=== PATIENT | male | born 1950 | race Caucasian/White ===

== ENCOUNTER 2016-12-11 00:36 | Observation (INO) | payer MEDICARE ==
[2016-12-11 02:40] LABS: #Eosinphils 0.4 thou/uL (0.0-0.7); #Lymphocytes 1.4 thou/uL (1.20-3.40); #Monocytes 0.5 thou/uL (0.11-0.59); #Neutrophils 3.6 thou/uL (1.40-6.50); %Eosinophils 6.4 % (0.0-10.0); %Lymphocytes 23.7 % (21.0-51.0); %Monocytes 7.9 % (0.0-10.0); Hematocrit 39.3 % (42.0-52.0); Mean Platelet Volume 7.1 fL (7.4-10.4); Red Blood Cell (RBC) Count 4.33 mill/uL (4.70-6.10); White Blood Cell (WBC) Count 5.9 thou/uL (4.8-10.8)
[2016-12-11 03:00] LABS: ALT (SGPT) 19 U/L (8-55); AST (SGOT) 21 U/L (5-34); Alkaline Phosphatase 76 U/L (40-150); Anion Gap 13 mmol/L (10-20); BUN (Urea Nitrogen) 36 mg/dL (8.4-25.7); Bilirubin, Total 0.4 mg/dL (0.2-1.2); CK (CPK) 107 U/L (30-200); Calc. Creatinine Clearance 0 mL/min (70-130); Calcium 9.5 mg/dL (7.8-10.44); Carbon Dioxide 23 mmol/L (23-31); Chloride 108 mmol/L (98-107); Estimated GFR-MDRD 43; Globulin 3.4 g/dL (2.4-3.5); Protein, Total 7.2 g/dL (5.8-8.1)
[2016-12-11 03:05] LABS: Troponin I 0.202 ng/mL (< 0.028)
[2016-12-11 06:14] LABS: Troponin I 0.678 ng/mL (< 0.028)
[2016-12-11] MEDS ORDERED: Acetaminophen 325 MG TAB PO PRN ×2 (06:31→08:35)
[2016-12-11] MEDS ORDERED: Ondansetron ODT 4 MG TAB SL PRN (06:31)
[2016-12-11] MEDS ORDERED: Ondansetron HCl/PF 4 MG/2 ML Vial IVP PRN ×2 (06:31→08:35)
[2016-12-11 08:03] VITALS: BMI 31.0
[2016-12-11] MEDS ORDERED: Bisacodyl 5 MG TAB PO PRN (08:35)
[2016-12-11] MEDS ORDERED: Ondansetron ODT 4 MG TAB PO PRN (08:35)
[2016-12-11] MEDS ORDERED: Nitroglycerin 0.4 MG TAB (25 Tab Bottle) PO PRN (08:35)
[2016-12-11] MEDS ORDERED: Aspirin 325 MG TAB PO SCH (09:00)
[2016-12-11] MEDS ORDERED: Docusate 100 MG CAP PO SCH (09:00)
[2016-12-11] MEDS ORDERED: Famotidine 20 MG TAB PO SCH (09:00)
[2016-12-11] MEDS: Enoxaparin Sodium 30 MG/0.3 ML SYRINGE SC SCH ×2 (09:04→09:07)
[2016-12-11 09:07] LABS: Troponin I 0.811 ng/mL (< 0.028)
--- NOTE | 2016-12-11 09:12 | HP ---
PRIMARY CARE PHYSICIAN: Lanny Gross GRANITE POLISHER: Dr. Kristopher Johnson CHIEF COMPLAINT: Hypertension and upper extremity heaviness. HISTORY OF PRESENT ILLNESS: This is a 66-year-old white male with a known history of significant co ronary artery disease and peripheral vascular disease. He had a CABG in February of this year and en a few months ago he also had an open AAA repair. The patient has been feeling a little bit fatig ued recently, been under stress and then yesterday evening he had to grief counsellor his daughter who was marcus ving suicidal ideation. This put him under a lot of stress. He felt heaviness in bilateral upper e xtremities and in his throat. No chest pain. The patient checked his blood pressure, it was very h igh, he was unable to give a specific number so he went into the emergency room. In the ER, his blo od pressure was in the 160s over 90s. This came down with medication in the emergency room and his heaviness symptoms improved; however, cardiac marker set came back with indeterminate troponins, so he was put observation in the hospital. He has felt better in the hospital. Second cardiac marker set went up from 0.2 initially to 0.6 on the troponin and so we are getting a Cardiology consult on him. PAST MEDICAL HISTORY: 1. Hypertension. 2. Coronary artery disease. 3. Peripheral vascular disease. 4. Glucose intolerance. 5. Dyslipidemia. 6. Chronic renal insufficiency ever since his CABG. PAST SURGICAL HISTORY: 1. Five-vessel CABG in 2017. 2. Endovascular AAA repair converted to open repair in 2017. FAMILY HISTORY: Positive for liver and colon malignancy in his mother. SOCIAL HISTORY: The patient drinks half a beer per day. No illicit drug use. He previously smoked 1 pack of cigars a day, but stopped in February of this year after his CABG. ALLERGIES: The patient is allergic to PENICILLIN. CURRENT MEDICATIONS: The patient does not have his current medication list with him currently. He already gave it the nurse when his was here earlier and I am waiting for that to be put in the computer. REVIEW OF SYSTEMS: CONSTITUTIONAL: No fevers, no chills. The patient has had some mild weight gain over the last year with decreased activity level. EYES: No double vision or blurred vision. He does have a cataract in his right eye which seriously impairs the vision in that eye. ENT: No congestion, drainage or sore throat. The patient had a nosebleed last night as well which made him concerned about elevation of his blood pressure. CARDIOVASCULAR: No chest pain, no palpitations, no racing heart. PULMONARY: No coughing, wheezing or shortness of breath. GASTROINTESTINAL: No abdominal pain, no nausea, vomiting, no diarrhea or constipation. GENITOURINARY: No dysuria or hematuria. MUSCULOSKELETAL: No muscle aches or joint pains. SKIN: No rashes or other lesions noted. NEUROLOGIC: No headaches. He did have the heaviness and weakness in bilateral upper extremities wh ich has now resolved. No numbness or tingling. PSYCHIATRIC: The patient has chronic depression, he has had it for his whole life, no specific wors ening recently. Recently he was under a lot of stress last night though when talking to his duke r. PHYSICAL EXAMINATION: VITAL SIGNS: Blood pressure 178/97 earlier this morning, now down to 132/82 after rest in the hospi wander, temperature 98.5, pulse 75, respirations 16, O2 sat 95% on room air. GENERAL: This is a well-developed, obese white male in no apparent distress, mood and affect approp riate, alert and oriented x3. EYES: Pupils equal, round, and reactive to light. ENT: Oropharynx clear without lesions, erythema or exudate. NECK: Supple, no lymphadenopathy, no thyroid nodules or enlargement, no JVD. HEART: Regular rate and rhythm, no murmurs, rubs or gallops. LUNGS: Clear to auscultation bilaterally, no wheezes, crackles or rhonchi. ABDOMEN: Soft, nontender to palpation, normoactive bowel sounds, no hepatosplenomegaly or other mas ses. EXTREMITIES: No clubbing or cyanosis. He does have trace lower extremity edema in bilateral feet. His peripheral dorsalis pedis pulses are weak bilaterally, though palpable. NEUROLOGIC: Cranial nerves intact and equal bilaterally. No facial droop. Deep tendon reflexes 2+ in all extremities. He has intact strength in all extremities. SKIN: No rashes or other lesions noted. PSYCHIATRIC: Alert and oriented x3, normal mood and affect. LABORATORY DATA: CBC is notable for hemoglobin of 12.6, hematocrit 39.3, the remainder is normal. Complete metabolic panel notable for a chloride of 108, BUN is 36, creatinine 1.63, which is about b aseline for him since his CABG, a glucose of 130 and magnesium of 2.7. The remainder of the CMP was normal. His cardiac marker set showed a CK-MB of 4.9 and initial troponin of 0.202. Repeat tropon in is 0.678. The third troponin is still pending. Chest x-ray: I did review the films done in the emergency room, he has some persistent scarring on his left lung base of his lung which is consistent with previous x-rays. No other infiltrates, no a cute cardiopulmonary processes visualized. EKG: I did review the EKG done in the emergency room which shows normal sinus rhythm with a right b undle branch block and a bifascicular block. No significant arrhythmias. No significant ST changes or evidence of ischemia. This is consistent with his previous EKGs done in the last year. ASSESSMENT AND PLAN: 1. Non-ST elevation myocardial infarction likely secondary to troponin leak from the patient's hype rtensive urgency and stress reaction last night. He has no active symptoms currently and his vital signs have normalized. We will consult Dr. Johnson, Cardiology, will put patient on n.p.o. right now i n case he wants to do a procedure, consider Lovenox anticoagulation, though with the patient's recen t nosebleed and renal insufficiency we will await Cardiology recommendations on that. 2. Hypertensive urgency. We will resume patient's home blood pressure medications and monitor clos michelle. 3. Chronic renal insufficiency. The patient is about baseline currently. We will avoid nephrotoxi c agents and watch closely. 4. Gastrointestinal prophylaxis. We will put patient on Pepcid twice a day. 5. Deep venous thrombosis prophylaxis. We will put the patient on sequential compression devices a nd SUMMER while in bed. CODE STATUS: Patient is a full code.
--- NOTE | 2016-12-11 09:13 | RAD ---
PORTABLE AP CHEST: Date: 12/11/16 HISTORY: Chest pain. COMPARISON: 02/19/16. FINDINGS: Postsurgical changes related to median sternotomy are again noted. Cardiac silhouette is magnified b y projection, but stable in size. Pulmonary vasculature is within normal limits. A few linear densit ies are seen in the left mid lung zone which could be related to atelectasis or scarring. There is p ersistent blunting of the left lateral costophrenic angle which may be related to left pleural effus ion or pleural thickening. Right lung is clear aside from the minimal scarring versus atelectasis. N o other interval change. IMPRESSION: 1. Tiny left pleural effusion versus pleural thickening. 2. Scattered linear areas of scarring versus atelectasis in the mid lung zones bilaterally. POS: [facility]
[2016-12-11] MEDS ORDERED: Carvedilol 6.25 MG TAB PO SCH ×2 (12:45→21:00)
[2016-12-11] MEDS ORDERED: Tamsulosin HCl 0.4 MG CAP PO SCH (12:45)
[2016-12-11] MEDS ORDERED: Clopidogrel Bisulfate 75 MG TAB PO SCH (12:45)
[2016-12-11] MEDS ORDERED: Furosemide 20 MG TAB PO SCH (12:45)
--- NOTE | 2016-12-11 14:50 | CON ---
DATE OF CONSULTATION: 12/11/2016 REFERRING PHYSICIAN: Dr. Christine. REASON FOR CONSULTATION: Chest pain. HISTORY OF PRESENT ILLNESS: Mr. Gordon is a well known 66-year-old gentleman with coronary artery di sease and peripheral vascular disease with recent aortic aneurysm repair and CABG. He presents with chest pain that came on with marked elevation of his blood pressure and has resolved with improved control. He has had some stressful social issues recently at home with a daughter who has recently had some major depressive disorder with suicidal ideation. He took his blood pressure when the onse t of his symptoms began. States his systolic blood pressure was in the 200 mmHg of range. This was trending down upon arrival in the emergency department and has normalized now with resumption of me dical therapy here in the hospital. He had indeterminate troponin elevation that is currently trend ing downward after elevation of his troponin mildly to positive range. He has no further symptoms a nd otherwise feels well and wants to go home. PAST MEDICAL HISTORY: 1. Coronary artery disease with recent CABG in 02/2016. 2. Peripheral vascular disease with recent abdominal aortic aneurysm repair. 3. Hypertension. 4. Type 2 diabetes mellitus. 5. Chronic kidney disease stage 3. 6. Dyslipidemia. PAST SURGICAL HISTORY: 1. CABG x5 in 2017. 2. Endovascular aortic aneurysm repair converted to open repair recently this year. ALLERGIES: PENICILLIN. SOCIAL HISTORY: He drinks half a beer. He denies illicit drug use. He was a smoker, but quit afte r his CABG. FAMILY HISTORY: Negative with respect to premature atherosclerosis. CURRENT MEDICATIONS: At home; 1. Aspirin 81 mg daily. 2. Plavix 75 mg daily. 3. Lipitor 40 mg daily. 4. Carvedilol 6.25 mg b.i.d. 5. Multivitamin daily. 6. Protonix 40 mg daily. 7. Flomax 0.4 mg daily. REVIEW OF SYSTEMS: As per history of present illness. Remainder of 12 system review is negative. PHYSICAL EXAMINATION: VITAL SIGNS: Blood pressure 132/82, pulse 75 and regular, respiratory rate 16 and nonlabored, tempe rature 98.5, and oxygen saturation 95% on room air. GENERAL: This is a well-developed, well-nourished 66-year-old gentleman in no acute distr ess. He is alert and oriented x4. Answers questions appropriately. HEENT: Head is atraumatic, normocephalic. Pupils are equally round and reactive. Sclerae and conj unctivae are clear. There are no oral lesions. NECK: Supple. No JVD, thyromegaly, or carotid bruits. CHEST: Symmetrical inspiration and expiration. HEART: Regular in rate and rhythm. No murmur, S3, or S4. PMI is nondisplaced. Not enlarged. LUNGS: Clear to auscultation in all gurrola. No adventitious sounds appreciated. ABDOMEN: Soft, nontender, nondistended, without mass or organomegaly. Bowel sounds are present in all 4 quadrants. There is no flank bruits auscultated. EXTREMITIES: 2+ pulses noted bilaterally. Upper and lower extremity strength 5/5 bilaterally. The re is no clubbing, cyanosis or edema. NEUROLOGIC: Grossly intact with no focal motor deficits appreciated. DATABASE: EKG reveals sinus rhythm, nonspecific T changes. LABORATORY DATA: CBC reveals white count of 5, hemoglobin and hematocrit of 12 and 39, platelet cou nt 186,000. Differential white blood cells normal. Red cell indices normocytic. Chemistries: Michelle ctrolytes are normal. BUN and creatinine of 36 and 1.6. GFR is estimated at 43. Glucose 130, magn esium 2.7, CK and CK-MB measurements are normal with troponin, initially indeterminate peaking at 0. 811. ASSESSMENT: 1. Hypertensive urgency. 2. Isolated troponin elevation secondary to #1. 3. Coronary artery disease with history of coronary artery bypass graft, stable. 4. Peripheral vascular disease, status post abdominal aortic aneurysm repair, stable. 5. Chronic kidney disease stage 3. 6. Dyslipidemia, on therapy. 7. Chronic obstructive pulmonary disease. RECOMMENDATIONS: From a cardiac standpoint, he is stable. His symptoms have resolved with normaliz ation of his blood pressure. I would recommend resumption of his routine medications, which do have if blood pressure pretty well controlled at home. He is working on getting his daughter's situatio n stabilized with rn medical surgical to prevent overall deterioration of his home health. I have ordered an echo to assess his LV function compared to his most recent office study and if there are no obvious changes or deterioration, we will clear him for discharge home with follow up in the out patient setting within the next 4-6 weeks. I appreciate the opportunity to participate.
[2016-12-11 15:40] VITALS: BP 102/57; TEMP 98.6
[2016-12-11] MEDS ORDERED: Atorvastatin Calcium 40 MG TAB PO SCH (21:00)
--- NOTE | 2016-12-12 06:11 | DIS ---
PRIMARY CARE PHYSICIAN: Lanny Howard [facility] PRIMARY STONE CHIMNEY [place]ON: Dr. Johnson. DIAGNOSES ON ADMISSION: 1. Non-ST elevation myocardial infarction. 2. Hypertensive urgency. 3. Chronic renal insufficiency. 4. Coronary artery disease. 5. Dyslipidemia. 6. Peripheral vascular disease. DIAGNOSES ON DISCHARGE: 1. Non-ST elevation myocardial infarction. 2. Hypertensive urgency has resolved. 3. Chronic renal insufficiency. 4. Coronary artery disease. 5. Dyslipidemia. 6. Peripheral vascular disease. CONSULTATIONS: Cardiology, Dr. Johnson. PROCEDURES: 1. Echocardiogram showing a left ventricular systolic ejection fraction of 45-50% and EA flow rever aminah suggestive of diastolic dysfunction. This is unchanged from previous echocardiogram. PERTINENT LABORATORY: Troponin went up to 0.8 during the admission, creatinine was 1.63. SUMMARY OF HOSPITAL COURSE: This is a 66-year-old white male with known coronary artery disease wit h a CABG earlier in the year, he was having a discussion with his teenage daughter and trying to fol low up with her when she went through some episodes of suicidal ideation. This put him under a lot of stress. He started feeling heaviness in bilateral upper extremities and around his throat. He n oted his blood pressure was high, so he came to the Emergency Room. There, his blood pressure was e levated. He was given medication to bring him down. His initial troponin was indeterminate 0.2, so he was put in the hospital, his troponins increased in the next [address] Johnson was consul wade. Patient did not have any symptoms in the hospital. His heaviness resolved, and he never had a ny chest pain, no shortness of breath. The troponin elevation was thought to be secondary to stress reaction and his severe hypertension. His blood pressure was controlled in the hospital with resum ption of his home medications and he was doing well later in the day and was stable for discharge. DISCHARGE MANAGEMENT: Discharged home. FOLLOWUP: Follow up with Dr. Johnson in 2-4 weeks and with Lanny Howard in the next month. ACTIVITY: As tolerated. DIET: Healthy heart and low sodium diet. MEDICATIONS: The patient is to resume his home medications. 1. Coenzyme Q10 200 mg at night. 2. Flomax 0.4 mg daily. 3. Mylicon drops as needed. 4. Potassium chloride 10 mEq daily. 5. MiraLax daily as needed. 6. Phenol, Chloraseptic spray as needed. 7. Protonix 40 mg daily. 8. Multivitamin daily. 9. Magnesium hydroxide as needed. 10. DuoNeb as needed. 11. Plavix 75 mg daily. 12. Coreg 6.25 mg twice a day. 13. Dulcolax as needed. 14. Atorvastatin 40 mg at night. 15. Aspirin 81 mg daily. 16. Acetaminophen as needed.
[2016-12-12] MEDS ORDERED: Clopidogrel Bisulfate 75 MG TAB PO SCH (09:00)
[2016-12-12] MEDS ORDERED: Tamsulosin HCl 0.4 MG CAP PO SCH (09:00)
[2016-12-12] MEDS ORDERED: Furosemide 20 MG TAB PO SCH (09:00)
--- NOTE | 2016-12-16 13:46 | EKG ---
Test Reason : Blood Pressure : / mmHG Vent. Rate : 084 BPM Atrial Rate : 084 BPM P-R Int : 168 ms QRS Dur : 142 ms QT Int : 430 ms P-R-T Axes : 055 -63 085 degrees QTc Int : 508 ms Normal sinus rhythm Possible Left atrial enlargement Right bundle branch block Left anterior fascicular block Bifascicular block Left ventricular hypertrophy with repolarization abnormality Cannot rule out Septal infarct , age undetermined Abnormal ECG Confirmed by SUSHIL YUAN MD ([id number]), website/blog editor TAYLOR VELASCO ([id number]) on 12/16/2016 1:45:57 PM Referred By: Confirmed By:SUSHIL YUAN MD
== END 2016-12-11 17:29 | disposition home or self-care (01) ==
LOC: ERS 00:36 → 2SE 04:10
PROVIDERS: ADMIT Internal Medicine; ATTEND Internal Medicine
DX: I21.4 Non-ST elevation (NSTEMI) myocardial infarction (principal); E11.22 Type 2 diabetes mellitus with diabetic chronic kidney disease; I16.0 Hypertensive urgency; I12.9 Hypertensive chronic kidney disease with stage 1 through stage 4 chronic kidney disease, or unspecified chronic kidney disease; N18.3 Chronic kidney disease, stage 3 (moderate); I25.10 Atherosclerotic heart disease of native coronary artery without angina pectoris; E78.5 Hyperlipidemia, unspecified; I73.9 Peripheral vascular disease, unspecified; Z79.82 Long term (current) use of aspirin; Z79.899 Other long term (current) drug therapy; Z88.0 Allergy status to penicillin; Z95.1 Presence of aortocoronary bypass graft; Z98.890 Other specified postprocedural states; Z87.891 Personal history of nicotine dependence; Z80.0 Family history of malignant neoplasm of digestive organs
CPT/HCPCS: 71010; 80053; 82550; 82553; 83735; 84484 ×2; 85025; 93005; 93306; 94760; 97139; 99284; G0378; 36415; J1650

== ENCOUNTER 2017-08-28 14:26 | Outpatient (CLI) | payer MEDICARE ==
--- NOTE | 2017-08-28 14:58 | RAD ---
TWO VIEWS OF THE CHEST: COMPARISON: 06/29/16. HISTORY: Hypertension and abdominal aortic aneurysm. FINDINGS: Two views of the chest show an enlarged but stable cardiomediastinal silhouette. The patient is stat us post sternotomy. Increased interstitial lung markings are present. There appears to be a small l eft pleural effusion. There is a mass-like opacity projecting on the lateral radiograph posteriorly. This measures 4.3 cm in size and may represent a small amount of loculated fluid along the posterio r aspect of the thorax. IMPRESSION: Small left pleural effusion with possible loculated fluid posteriorly. POS: [facility]
== END 2017-08-28 14:27 | disposition home or self-care (01) ==
LOC: RAD-FRANK 14:26
PROVIDERS: ATTEND Nurse Practitioner Family
DX: I71.4 Abdominal aortic aneurysm, without rupture (principal); I10 Essential (primary) hypertension; J90 Pleural effusion, not elsewhere classified
CPT/HCPCS: 71046

== ENCOUNTER 2017-09-18 12:35 | Outpatient (CLI) | payer MEDICARE ==
--- NOTE | 2017-09-18 13:29 | RAD ---
TWO VIEWS CHEST: History: Dyspnea. Date: 09-18-17 Comparison: 08-28-17 FINDINGS: PA and lateral images demonstrate sternotomy wires seen. Areas of scar seen in the mid left lung as well as both lung bases. Some areas of pleural thickening seen along the lateral aspect of the left pleural space, again stabl e. No acute intrathoracic abnormalities seen. Again on the lateral view posteriorly there appears to be an area of opacity unchanged since the prev ious exam. IMPRESSION: Stable two views chest. Correlation with chest CT, however, may be of use if clinically indicated. POS: [facility]
== END 2017-09-18 12:36 | disposition home or self-care (01) ==
LOC: RAD 12:35
PROVIDERS: ATTEND Internal Medicine Critical Care Medicine
DX: R06.00 Dyspnea, unspecified (principal)
CPT/HCPCS: 71046

== ENCOUNTER 2017-10-29 13:33 | Outpatient (CLI) | payer MEDICARE ==
--- NOTE | 2017-10-29 15:58 | CT ---
NONCONTRAST CT THORAX: Date: 10/29/17 HISTORY: Abnormal chest x-ray. Pleural effusion. COMPARISON: Noncontrasted CT thorax on 06/09/16. FINDINGS: Vascular calcifications are again seen in the coronary arteries involving the thoracic aorta. There a re postsurgical changes related to CABG. There is an area of consolidation seen in the left lower lobe with generalized volume loss of the lef t lower lobe, but this is likely attributable to an area of rounded atelectasis, but continued follow -up is recommended. There is minimal pleural thickening versus pleural effusion at the left lung base . The pleural effusion noted on the prior exam has improved. In the superior segment of the right lower lobe, there is a noncalcified 9.0 mm pulmonary nodule whic h is certainly more discrete than on the prior exam where this measured 6.0 mm. This is enlarged comp ared to prior exam. There is linear scarring versus atelectasis in the right lower lobe. No additional discrete pulmonary nodule or mass is seen. No enlarged lymph nodes are seen by CT size criteria. There is incomplete visualization of a right renal hypodense lesion noted on prior exam of 2017. IMPRESSION: 1. Area of parenchymal consolidation left lower lobe with generalized volume loss of left lower lobe . Findings are thought to most likely be related to an area of rounded atelectasis. However, follow-u p evaluation in 6 months is recommended. 2. Decrease in left pleural effusion with minimal pleural thickening at the left lung base. 3. Mild interval enlargement of a right lower lobe pulmonary nodule which measures 9.0 mm on the cur rent study and previously measured 6.0 mm. POS: [facility]
== END 2017-10-29 13:34 | disposition home or self-care (01) ==
LOC: CT 13:33
PROVIDERS: ATTEND Internal Medicine Critical Care Medicine
DX: J90 Pleural effusion, not elsewhere classified (principal); J92.9 Pleural plaque without asbestos; J18.1 Lobar pneumonia, unspecified organism; R91.1 Solitary pulmonary nodule
CPT/HCPCS: 71250

== ENCOUNTER 2017-11-07 09:37 | Inpatient (IN) | payer MEDICARE ==
[2017-11-07 10:57] LABS: Hemoglobin 14.2 g/dL (14.0-18.0); Mean Corpuscular HGB CONC 31.4 g/dL (32.0-36.0); Mean Corpuscular Hemoglobin 30.3 pg (27.0-31.0); Mean Corpuscular Volume 96.5 fL (78.0-98.0); Mean Platelet Volume 6.7 fL (7.4-10.4); Platelet Count 203 thou/uL (130-400); RBC Distribution Width 14.4 % (11.5-14.5); Red Blood Cell (RBC) Count 4.67 mill/uL (4.70-6.10); White Blood Cell (WBC) Count 5.3 thou/uL (4.8-10.8)
[2017-11-07 11:14] LABS: Anion Gap 11 mmol/L (10-20); BUN (Urea Nitrogen) 37 mg/dL (8.4-25.7); Calc. Creatinine Clearance 67 mL/min (70-130); Calcium 9.4 mg/dL (7.8-10.44); Carbon Dioxide 23 mmol/L (23-31); Chloride 110 mmol/L (98-107); Estimated GFR-MDRD 38; Glucose 106 mg/dL (80-115); Potassium 4.4 mmol/L (3.5-5.1); Sodium 140 mmol/L (136-145)
[2017-11-07] MEDS ORDERED: Midazolam HCl 2 mg/2 ml Vial ONE (14:07)
[2017-11-07] MEDS ORDERED: Fentanyl 100 MCG/2 ML VIAL ONE ×2 (14:15→18:20)
[2017-11-07] MEDS ORDERED: Protamine Sulfate 50 MG/5 ML VIAL ONE ×2 (14:20→17:09)
[2017-11-07] MEDS ORDERED: Heparin 5,000 UNITS/ML VIAL ONE (14:20)
[2017-11-07] MEDS ORDERED: Phenylephrine HCL 10 MG/ML VIAL ONE (14:46)
[2017-11-07] MEDS ORDERED: Ondansetron HCl/PF 4 MG/2 ML Vial ONE (15:10)
[2017-11-07] MEDS ORDERED: PROPOFOL 200 MG/20 ML VIAL ONE (15:10)
[2017-11-07] MEDS ORDERED: Lidocaine 1% PF 5 ML VIAL ONE (15:10)
[2017-11-07] MEDS ORDERED: PHENYLEPHRINE-NS 100 MCG/ML 10 ML SYRINGE ONE (15:10)
[2017-11-07] MEDS ORDERED: Dexamethasone 20 MG/5 ML VIAL ONE (15:10)
[2017-11-07] MEDS ORDERED: Glycopyrrolate 0.2 MG/ML 5 ML SYRINGE ONE (15:10)
[2017-11-07] MEDS ORDERED: Heparin 10,000 UNITS/ 10 ML VIAL ONE (15:10)
[2017-11-07] MEDS ORDERED: Heparin 10,000 UNITS/1 ML VIAL ONE (16:11)
--- NOTE | 2017-11-07 16:44 | EKG ---
Test Reason : PREOP Blood Pressure : / mmHG Vent. Rate : 072 BPM Atrial Rate : 072 BPM P-R Int : 188 ms QRS Dur : 160 ms QT Int : 448 ms P-R-T Axes : 065 -63 091 degrees QTc Int : 490 ms Normal sinus rhythm Right bundle branch block Left anterior fascicular block Bifascicular block Left ventricular hypertrophy with repolarization abnormality Abnormal ECG When compared with ECG of 11-DEC-2016 00:56, No significant change was found Confirmed by KALEN LUO, SJad ([id number]) on 11/07/2017 4:44:18 PM Referred By: MUNIRA Confirmed By:DR. Hannah HIGUERA MD
[2017-11-07] MEDS ORDERED: Promethazine HCl 25 MG/ML VIAL SLOW IVP PRN (18:14)
[2017-11-07] MEDS ORDERED: Ondansetron HCl/PF 4 MG/2 ML Vial IVP PRN ×2 (18:14→20:10)
[2017-11-07] MEDS ORDERED: Promethazine HCl 25 MG/ML VIAL IM PRN ×2 (18:14→20:10)
[2017-11-07] MEDS ORDERED: HYDROcodone/Acetaminophen 5/325 mg Tablet PO PRN ×2 (20:10)
[2017-11-07] MEDS ORDERED: Acetaminophen 325 MG TAB PO PRN (20:10)
[2017-11-07] MEDS ORDERED: hydrALAZINE 20 MG/ML VIAL SLOW IVP PRN (20:10)
[2017-11-07] MEDS: Sodium Chloride 0.9% 1,000 ML IV SCH (20:23)
[2017-11-07 20:35] VITALS: BMI 32.5
--- NOTE | 2017-11-07 20:38 | OP ---
DATE OF PROCEDURE: 11/07/2017 PROCEDURE PERFORMED: Left carotid endarterectomy. PREOPERATIVE DIAGNOSIS: Left carotid stenosis. POSTOPERATIVE DIAGNOSIS: Left carotid stenosis. SURGEON: Gildardo Chatterjee M.D. ANESTHESIA: General endotracheal anesthesia. INDICATIONS: The patient is a 67-year-old man with extensive vascular history, having undergone prev ious coronary artery bypass grafting and aortic aneurysm repair. He had asymptomatic carotid bruits and ultrasonography suggested modest stenosis on the right side, but a high grade stenosis on the lef t. In light of his mild renal insufficiency, it is opted to proceed with left carotid endarterectomy based on the available studies. FINDINGS: Large tortuous carotid with deeply ulcerated soft plaque at the bulb extending 2-3 cm dist ally into the internal carotid artery. There was brisk ICA backbleeding. Preshunt clamp time was 9 minutes. Shunt time was 29 minutes. Post-shunt clamp time was 4 minutes. NARRATIVE REPORT: After informed consent was obtained, the patient was taken to the operating room a nd placed in supine position on the operating table. After the induction of general anesthesia, gardenia ent's neck was extended and rotated towards the right. His left neck was then prepped and draped in sterile fashion. An oblique incision is made in the skin crease on the left neck using a scalpel and electrocautery. The dissection was carried through subcutaneous tissue, platysma anteromedial to th e sternocleidomastoid muscle and internal jugular vein. The common carotid artery was dissected free from that sheath and the vagus nerve and looped with a vessel loop. Multiple tributaries to the jug ular system crossing the operative field were ligated and divided. The dissection was carried distal ly. The external carotid system was looped in mass with a vessel loop. At the bulb plaque could be appreciated visually through the vessel wall, the internal carotid was quite tortuous and a nest of e xtremely thin walled small veins crossing the field that required ligation and division. The anterio r cervical callus was divided. The dissection was carried beyond the level of the hypoglossal nerve and digastric muscle. After adequate circulation of heparin, the internal carotid, common carotid, a nd external carotid systems were sequentially occluded. A longitudinal arteriotomy was made in the d istal common carotid artery and extended proximally and distally with Garcia scissors. An endarterect bud plane was developed at the bulb. Plaque was transected at the common carotid level and everted f rom the external carotid system. The plaque did not break off very easily in the internal carotid di steveny. There is a deeply ulcerated plaque where the ulcer bed was adherent to the vessel wall deep to the endarterectomy plane. The plaque distal to that was tailored to establish a distal feather an d an intraluminal carotid shunt was inserted first distally in the internal carotid and proximally in the common carotid aspirating side port of the shunt before allowing antegrade flow through it into the internal carotid system. Control of bleeding around the shunt distally was established with David d shunt clamp. The endarterectomy bed was irrigated. A Ray-Derrick sponge, elevator and forceps were us ed to debride the remaining soft plaque from the vessel wall. This was a tedious and time consuming process. The endarterectomy bed finally was adequately debrided and irrigated. The arteriotomy was then sewn from either apex with running 6-0 Prolene suture with about a 0.5 cm of arteriotomy left, s o shunt was clamped and removed with vascular control being reestablished on the origin of the recruiting intern al carotid and on the common carotid with vessel loops. The remaining arteriotomy was found. The ve ssels are forward and backbled to allow for flushing of any air or residual debris out the arteriotom y or into the external carotid system. The suture line was secured and antegrade flow was allowed fi rst into the external carotid and then into the internal carotid. The wound was inspected for gross hemostasis, which appeared to be adequate. The wound was packed off. Because of diffuse oozing from the dissection bed as well as from the suture line, it was opted to at least partially reverse the h eparin. The patient has been given 12,000 units of heparin, initially 50 mg of protamine was initial ly given because of ongoing oozing, it was opted ultimately gave an additional 50 mg. There were no distinct bleeding points on the suture line noted, although along the common carotid, there was a dif fuse area of ooze that was rendered hemostatic by oversewing that area with fine Prolene. After havi ng packed the wound off with Surgicel and Ray-Derrick sponges and done almost 1:1 reversal of the heparin . After about 45 minutes, hemostasis was finally adequate to allow for closure. The platysma was re approximated with a running 3-0 Vicryl and the skin was closed with running 5-0 Vicryl subcuticular s uture and Steri-Strips. The wound was dressed. The patient was awakened in the operating room, take n to the recovery area in good condition.
[2017-11-07] MEDS ORDERED: Multivitamin W/ Minerals 1 TAB PO SCH (21:00)
[2017-11-07] MEDS ORDERED: Atorvastatin Calcium 40 MG TAB PO SCH (21:00)
[2017-11-07] MEDS ORDERED: Ubidecarenone 50 MG CAP PO SCH (21:00)
[2017-11-07] MEDS: Oxybutynin 5 MG TAB PO SCH (21:38)
[2017-11-07] MEDS: Carvedilol 6.25 MG TAB PO SCH (21:38)
[2017-11-07] MEDS: hydrALAZINE 25 MG TAB PO SCH (21:38)
[2017-11-08] MEDS: Sodium Chloride 0.9% 1,000 ML IV SCH ×2 (05:54→12:23)
--- NOTE | 2017-11-08 07:13 | DIS ---
DATE OF ADMISSION: 11/07/2017 DATE OF DISCHARGE: 11/08/2017 PRINCIPAL DIAGNOSIS: Left carotid stenosis. PROCEDURES PERFORMED: Left carotid endarterectomy. HISTORY OF PRESENT ILLNESS AND HOSPITAL COURSE: The patient is a 67-year-old former smoker with diff use vascular disease, asymptomatic carotid bruits prompted carotid ultrasonography, which demonstrate d modest disease on the right and elevated velocities and ratios and spectral broadening on the left consistent with a high grade stenosis. Because of mild renal insufficiency, it was opted to forego f urther imaging studies and after discussing treatment options, he was brought into the hospital for l eft carotid endarterectomy. Intraoperatively, the carotid was noted to be very tortuous and involves with soft plaque that was deeply ulcerated which pose simply some technical problems with adequately endarterectomizing the vessel. He had an uneventful postoperative recovery overnight in the hospita l in the ICU with the exception of urinary retention. Today on postoperative day #1, he had some min imal bruising and swelling associated with the wound consistent with skin edge bleeding. His tongue is midline. His voice is normal. He is breathing and swallowing without difficulty. He is able to move all extremities normally. He can go home today once his voiding issues declare themselves. I w ill plan on seeing him in the office in about 2 weeks' time. He is to resume his home medications, w hich include aspirin and Plavix.
[2017-11-08] MEDS ORDERED: Potassium Chloride 10 MEQ TAB PO SCH (08:00)
[2017-11-08] MEDS ORDERED: Tamsulosin HCl 0.4 MG CAP PO SCH (09:00)
[2017-11-08] MEDS ORDERED: Prevnar 13-Val Conj/PF 0.5 ML SYRINGE IM ONE (09:00)
[2017-11-08] MEDS ORDERED: Furosemide 20 MG TAB PO SCH (09:00)
[2017-11-08] MEDS: Carvedilol 6.25 MG TAB PO SCH (09:10)
[2017-11-08] MEDS: hydrALAZINE 25 MG TAB PO SCH (09:10)
[2017-11-08] MEDS: Oxybutynin 5 MG TAB PO SCH (09:11)
[2017-11-08 09:18] VITALS: BP 112/58
[2017-11-08 12:10] VITALS: TEMP 98.3
== END 2017-11-08 12:50 | disposition home or self-care (01) | DRG 38 ==
LOC: SURG A 09:37 → EDSTATUS 16:07 → CCU 19:55
PROVIDERS: ADMIT Thoracic Surgery (Cardiothoracic Vascular Surgery); ATTEND Thoracic Surgery (Cardiothoracic Vascular Surgery)
PROC: 03CL0ZZ Extirpation of Matter from Left Internal Carotid Artery, Open Approach (ICD-10-PCS; principal; 2017-11-07)
DX: I65.22 Occlusion and stenosis of left carotid artery (principal); I25.110 Atherosclerotic heart disease of native coronary artery with unstable angina pectoris; Z79.02 Long term (current) use of antithrombotics/antiplatelets; Z79.82 Long term (current) use of aspirin; J44.9 Chronic obstructive pulmonary disease, unspecified; I10 Essential (primary) hypertension; Z95.1 Presence of aortocoronary bypass graft; Z88.0 Allergy status to penicillin
CPT/HCPCS: 80048; 85027; 90471; 90670; 93005; 93010; 94640; A4216; G0009; J0360; J1100; J1642; J1644; J2001; J2250; J2270; J2370; J2405; J2704; J2720; J3010; J7620

== ENCOUNTER 2018-06-13 09:52 | Outpatient (CLI) | payer MEDICARE ==
--- NOTE | 2018-06-13 11:00 | CT ---
NONCONTRAST ENHANCED CT CHEST: DATE: 06/13/2018. COMPARISON: Comparison is made to previous exam from 10/29/2018. FINDINGS: Noncontrast enhanced CT of the chest demonstrates previous sternotomy wires seen. Coronary artery ca lcification is seen. Bibasilar areas of lung parenchymal scarring is seen. Previously noted right lower lobe upper aspect lung parenchymal nodular density is no longer definitively visible. This area may have extended and become involved with some area of pleural scarring. No definite evidence of mediastinal, hilar, or axillary lymphadenopathy is seen. The pancreas is atrophied. The gallbladder is unremarkable. IMPRESSION: Multiple areas of lung parenchymal scarring. No definite evidence of lung parenchymal mass is seen. There is abnormal dilatation of the descending thoracic aorta as it passes through the diaphragm. D iameter measures up to 5.1 cm. It is significantly smaller proximal and distal to this area of focal aneurysmal dilatation of the thoracoabdominal junction. The superior inferior length of the area of aneurysmal dilatation measures approximately 9 cm. Previous diameter in this same area on October 29, 2017 exam measured approximately 4.9 cm. POS: [facility]
== END 2018-06-13 09:53 | disposition home or self-care (01) ==
LOC: BICCT 09:52
PROVIDERS: ATTEND Internal Medicine Critical Care Medicine
DX: R91.1 Solitary pulmonary nodule (principal); J98.4 Other disorders of lung; I77.810 Thoracic aortic ectasia; I71.6 Thoracoabdominal aortic aneurysm, without rupture
CPT/HCPCS: 71250

== ENCOUNTER 2018-07-12 12:32 | Outpatient (CLI) | payer MEDICARE ==
--- NOTE | 2018-07-12 14:32 | CT ---
CT ABDOMEN AND PELVIS WITHOUT CONTRAST: Date: 07/12/18 HISTORY: Essential hypertension. FINDINGS: Absence of oral and IV contrast reduces the sensitivity of exam, particularly for evaluation of solid organs and bowel. Atelectatic changes in the left lung base and 5.1 cm aneurysm of the descending th oracic aorta are again seen as on CT chest of 06/13/18. There are vascular calcifications without evidence of aneurysmal dilatation of the abdominal aorta. T here are postop changes of aortofemoral bypass surgery. There is a 2.6 cm aneurysm of the right commo n iliac artery and a 2.4 cm aneurysm of the left common iliac artery. No calcified gallstones are seen. No free air or free fluid is noted in the abdomen or pelvis. There are degenerative changes in the spine. No calculi seen in the kidneys, ureters, or the urinary bladder. Bilateral renal cysts are present. N o hydroureteronephrosis is seen on either side. There is colonic diverticulosis without evidence of d iverticulitis. A small umbilical hernia is seen containing loop of bowel. A normal appearing appendix is present. IMPRESSION: 1. No CT evidence of urinary tract calculi or obstruction. 2. Bilateral renal cysts. 3. Colonic diverticulosis. 4. Small umbilical hernia containing non obstructing bowel loop. 5. 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 6. No evidence of abdominal aortic aneurysm. 7. Bilateral common iliac artery aneurysms. POS: [facility]
== END 2018-07-12 12:33 | disposition home or self-care (01) ==
LOC: BICCT 12:32
PROVIDERS: ATTEND Thoracic Surgery (Cardiothoracic Vascular Surgery)
DX: I10 Essential (primary) hypertension (principal); N28.1 Cyst of kidney, acquired; I71.2 Thoracic aortic aneurysm, without rupture; I72.3 Aneurysm of iliac artery; K57.30 Diverticulosis of large intestine without perforation or abscess without bleeding; K42.9 Umbilical hernia without obstruction or gangrene
CPT/HCPCS: 74176

== ENCOUNTER 2018-08-24 16:45 | Emergency (ER) | payer MEDICARE ==
--- NOTE | 2018-08-24 18:31 | ULT ---
VASCULAR AND NONVASCULAR ULTRASOUND OF THE LEFT ASPECT OF THE NECK: 08/24/18 INDICATION: Neck swelling following left endarterectomy. TECHNIQUE: Johnson scale, color Doppler images were obtained in the region of swelling in the left neck. FINDINGS: There is some mild soft tissue swelling seen near the region of the parotid. There is appropriate ant egrade flow seen within the left common carotid artery. No pseudoaneurysm is evident. IMPRESSION: 1. No evidence of pseudoaneurysm. 2. Soft tissue swelling of the left aspect of the neck which may be postoperative in nature. POS: [facility]
== END 2018-08-24 19:19 | disposition home or self-care (01) ==
LOC: ERS 16:45
DX: R22.1 Localized swelling, mass and lump, neck (principal); I10 Essential (primary) hypertension; I25.10 Atherosclerotic heart disease of native coronary artery without angina pectoris; F32.9 Major depressive disorder, single episode, unspecified; Z87.891 Personal history of nicotine dependence; Z79.82 Long term (current) use of aspirin; Z79.899 Other long term (current) drug therapy
CPT/HCPCS: 76536

== ENCOUNTER 2018-12-24 12:56 | Outpatient (CLI) | payer MEDICARE ==
--- NOTE | 2018-12-24 14:02 | RAD ---
RADIOGRAPH CHEST 2 VIEWS: Date: 12/24/18 Time: 1305 hours HISTORY: 68-year-old male with dyspnea. COMPARISON: 09/18/17. FINDINGS: Ectasia and tortuosity of entire descending thoracic aorta. Aneurysm of lower descending thoracic aor ta (as demonstrated on chest CT of 06/13/18). On the frontal view, there is no interval change. Trans versely oriented pulmonary scar at left lateral mid lung zone. No pleural effusion or pneumothorax. N o pulmonary edema. On the lateral view, chronic blunting of the left posterior costophrenic angle con sistent with pleural thickening, unchanged. On the lateral view, the left posterior pleural based mas s-like opacity at the superior segment at the junction between superior and basilic segment of lower lobe, has become much smaller. A nodular area with streaky radiations pointing anteriorly is now pres ent in that location. There is adjacent focal pleural thickening. Sternotomy wires. IMPRESSION: 1. Interval decrease in size of the left posterior pleural based lower lobe opacity. It currently marcus s spiculated margins suggesting that it is probably pulmonary scar. However, another follow-up chest CT is recommended to compare it with the prior chest CT of 06/13/18. 2. Lower descending thoracic aortic aneurysm. 3. No acute findings. WENDY [] POS: [facility]
== END 2018-12-24 12:57 | disposition home or self-care (01) ==
LOC: RAD 12:56
PROVIDERS: ATTEND Internal Medicine Critical Care Medicine
DX: R06.00 Dyspnea, unspecified (principal); I71.2 Thoracic aortic aneurysm, without rupture; R91.8 Other nonspecific abnormal finding of lung field
CPT/HCPCS: 71046

== ENCOUNTER 2019-01-26 19:30 | Outpatient (CLI) | payer MEDICARE | END 2019-01-26 19:31 | disposition home or self-care (01) | LOC: SLEEPLAB 19:30 | PROVIDERS: ATTEND Internal Medicine Critical Care Medicine | DX: G47.33 Obstructive sleep apnea (adult) (pediatric) (principal); K21.9 Gastro-esophageal reflux disease without esophagitis; R53.83 Other fatigue; R06.83 Snoring; I50.9 Heart failure, unspecified; E66.9 Obesity, unspecified; I10 Essential (primary) hypertension; G47.00 Insomnia, unspecified | CPT/HCPCS: 95811 ==

== ENCOUNTER 2019-07-15 10:38 | Outpatient (CLI) | payer MEDICARE ==
--- NOTE | 2019-07-15 15:20 | CT ---
CT ABDOMEN AND PELVIS PERFORMED WITHOUT CONTRAST ENHANCEMENT: 07/15/19 HISTORY: Follow-up aortic aneurysm. History of aortic aneurysm repair. COMPARISON: A 07/12/18 exam. The lung bases show some chronic linear scarring and pleural based change in the left base, all stabl e. There is dilatation of the descending thoracic aorta just above the level of the aortic hiatus lucero suring 5.1 cm. Similar to the previous exam. The liver, spleen, pancreas, and gallbladder regions appear unremarkable. The right and left adrenal glands are normal in appearance. Hypodensities involving the right kidney appears stable. Smaller hypodensity involving the left kidney is also stable. There is no significant periaortic or mesenteric adenopathy. Colonic diverticulosis is present. An aortobifemoral graft is p resent. The [place] common iliac arteries again show aneurysmal dilatation similar to the previous exa m. The right common iliac artery is 2.7 cm and the left is 2.3 cm. These findings are stable. No pelv ic lymphadenopathy or mass. A small umbilical hernia is noted. IMPRESSION: 1. Stable appearance to the partially visualized descending thoracic aneurysm. 2. Aortobifemoral graft stable appearance to bilateral common iliac artery to [place] right and l eft common iliac artery aneurysms. 3. Colonic diverticulosis. 4. Small umbilical hernia. POS: [facility]
--- NOTE | 2019-07-15 15:35 | CT ---
CT OF THE THORAX WITHOUT IV CONTRAST: 07/15/19 INDICATION: Follow-up aneurysms. COMPARISON: Prior CT of the thorax without contrast dated 06/13/18. Prior CT of the thorax dated 10/29/17. FINDINGS: There is scattered scarring and subsegmental volume loss involving both lungs stable appearing. There is scattered emphysema. There is a new 9 mm pulmonary nodule in the left upper lobe on image 56 of s eries 3. No enlarged lymph nodes evident. Stable postprocedural change of a prior CABG. Stable aneurysmal dilatation of the ascending aorta measuring 5.1 cm. Aneurysmal dilatation of the ao rtic arch measures 3.9 cm and stable appearing. Aneurysmal dilatation of the descending thoracic aorta at the level of the right main pulmonary arter y is 3.3 cm, stable appearing. The dilatation at the level of the diaphragmatic hiatus now measures 5.3 cm where it previously measu red 5.1 cm. There is a small hiatal hernia. There is small bilateral renal cyst. There is diffuse osteopenia. The re are scattered degenerative change. No definite acute osseous abnormality is evident. IMPRESSION: 1. Slight interval enlargement of the distal descending thoracic aortic aneurysm at the level of the hiatus measuring up to 5.3 cm, previously seen measuring 5.1 cm. Aneurysmal dilatation of the as cending aorta, aortic arch and proximal descending thoracic aorta is stable appearing. 2. New 8 mm spiculated pulmonary nodule in the left upper lobe is suspicious for malignancy. Rec ommend consideration for PET scan for additional characterization. 3. Scattered emphysema and subsegmental volume loss. Code T POS: [facility]
== END 2019-07-15 10:39 | disposition home or self-care (01) ==
LOC: BICCT 10:38
PROVIDERS: ATTEND Thoracic Surgery (Cardiothoracic Vascular Surgery)
DX: I71.4 Abdominal aortic aneurysm, without rupture (principal)
CPT/HCPCS: 71250; 74176

== ENCOUNTER 2020-02-19 11:17 | Outpatient (CLI) | payer MEDICARE ==
--- NOTE | 2020-02-19 11:54 | CT ---
CT Abdomen Pelvis WO Con 02/19/2020 11:20 AM HISTORY: Follow-up abdominal aortic aneurysm and abdominal aortic aneurysm repair. COMPARISON: 07/15/2019 and 07/12/2018 Technique: Multiple contiguous axial CT images are obtained through the abdomen and pelvis without IV contrast. Coronal reformats are provided. FINDINGS: This examination is limited for the evaluation of solid organs and vascular structures due to the lac k of intravenous contrast. Lower Chest: There is stable mild pleural and parenchymal scarring noted at each lung base. Liver: Grossly normal non-enhanced CT appearance. Gallbladder: Within normal limits for CT imaging. Pancreas: Fatty replaced but grossly normal nonenhanced CT appearance. Spleen: Grossly normal nonenhanced CT appearance. Adrenals: Grossly normal nonenhanced CT appearance. Kidneys and ureters: There are stable bilateral renal cysts. No renal or ureteral calculi are seen bi laterally, and there is no hydronephrosis. Urinary bladder: Urinary bladder has a normal CT appearance. Reproductive Organs: No pelvic masses. Lymph Nodes: No enlarged lymph nodes. Bowel: Evidence of colonic diverticulosis. Loops of small bowel are normal in caliber. Appendix: The appendix is normal in caliber. Peritoneum: No free fluid, free air, or fluid collection. Retroperitoneum: within normal limits. Vessels: Postoperative changes related to aortobifemoral bypass are again seen again noted is aneurys mal dilatation of the [place] common iliac arteries with right common carotid artery measuring 2.9 cm in diameter and unchanged in size compared to study in 2019. Vascular calcifications are seen in t he abdominal aorta and in the iliac arteries. There is aneurysmal dilatation of the distal thoracic aorta just proximal to the aortic hiatus which measures 5.3 cm in diameter with previously obtained m easurement of 5.1 cm. Abdominal Wall: Tiny fat-containing ventral abdominal wall hernias related to incisional hernias. The re is a area of soft tissue density seen along the right aspect of the umbilicus which could relate to an area of mild scarring. This is a stable finding. Postoperative changes e.g. region are noted. Bones: Degenerative changes are again seen in the spine. IMPRESSION: 1. Aneurysmal dilatation of the imaged portion of the distal thoracic aorta which measures 5.3 cm in diameter. 2. Postoperative changes related to aortobifemoral bypass graft with persistent aneurysmal dilatation of the [place] common iliac arteries. 3. Colonic diverticulosis. 4. Bilateral renal cysts. 6. Mild bibasilar pleural and parenchymal scarring. 7. Colonic diverticulosis.
== END 2020-02-19 11:18 | disposition home or self-care (01) ==
LOC: BICCT 11:17
PROVIDERS: ATTEND Thoracic Surgery (Cardiothoracic Vascular Surgery)
DX: I71.4 Abdominal aortic aneurysm, without rupture (principal); I71.2 Thoracic aortic aneurysm, without rupture; K57.30 Diverticulosis of large intestine without perforation or abscess without bleeding; N28.1 Cyst of kidney, acquired; J98.4 Other disorders of lung; I72.3 Aneurysm of iliac artery; Z98.890 Other specified postprocedural states
CPT/HCPCS: 74176

== ENCOUNTER 2020-06-22 16:15 | Outpatient (CLI) | payer MEDICARE | END 2020-06-22 16:16 | disposition home or self-care (01) | LOC: BICRAD 16:15 | PROVIDERS: ATTEND Internal Medicine Critical Care Medicine | DX: R06.00 Dyspnea, unspecified (principal) | CPT/HCPCS: 71046 ==

== ENCOUNTER 2020-09-21 13:22 | Outpatient (CLI) | payer MEDICARE | END 2020-09-21 13:23 | disposition home or self-care (01) | LOC: BICRAD 13:22 | PROVIDERS: ATTEND Internal Medicine Critical Care Medicine | DX: R06.00 Dyspnea, unspecified (principal); R94.2 Abnormal results of pulmonary function studies | CPT/HCPCS: 71046; 94060; 94726; 94729; 94760 ==

== ENCOUNTER 2020-10-04 14:22 | Outpatient (CLI) | payer MEDICARE ==
[2020-10-04] MEDS ORDERED: Iopamidol 370 76% 100 ML VIAL ONE (15:13)
== END 2020-10-04 14:23 | disposition home or self-care (01) ==
LOC: BICCT 14:22
PROVIDERS: ATTEND Internal Medicine Critical Care Medicine
DX: R91.1 Solitary pulmonary nodule (principal); I77.810 Thoracic aortic ectasia
CPT/HCPCS: 71260; 82565; Q9967

== ENCOUNTER 2020-10-19 09:08 | Outpatient (CLI) | payer MEDICARE | END 2020-10-19 09:09 | disposition home or self-care (01) | LOC: PET 09:08 | PROVIDERS: ATTEND Internal Medicine Critical Care Medicine | DX: R91.8 Other nonspecific abnormal finding of lung field (principal) | CPT/HCPCS: 78815; A9552 ==

== ENCOUNTER 2021-07-04 13:52 | Outpatient (CLI) | payer MEDICARE | END 2021-07-04 13:53 | disposition home or self-care (01) | LOC: RAD 13:52 | PROVIDERS: ATTEND Internal Medicine Critical Care Medicine | DX: R06.00 Dyspnea, unspecified (principal) | CPT/HCPCS: 71046 ==

== ENCOUNTER 2021-08-29 12:36 | Outpatient (CLI) | payer MEDICARE ==
[~2021-08-29 12:36] MED LIST: Iopamidol 370 76% 100 ML VIAL ONE
== END 2021-08-29 12:37 | disposition home or self-care (01) ==
LOC: CT 12:36
PROVIDERS: ATTEND Thoracic Surgery (Cardiothoracic Vascular Surgery)
DX: I71.2 Thoracic aortic aneurysm, without rupture (principal); J98.11 Atelectasis
CPT/HCPCS: 71275; 82565; Q9967

== ENCOUNTER 2022-01-13 09:02 | Outpatient (CLI) | payer MEDICARE | END 2022-01-13 09:03 | disposition home or self-care (01) | LOC: RAD 09:02 | PROVIDERS: ATTEND Internal Medicine Critical Care Medicine | DX: R06.00 Dyspnea, unspecified (principal); J98.4 Other disorders of lung | CPT/HCPCS: 71046 ==

== ENCOUNTER 2022-07-31 10:54 | Outpatient (CLI) | payer MEDICARE | END 2022-07-31 10:55 | disposition home or self-care (01) | LOC: RAD 10:54 | PROVIDERS: ATTEND Internal Medicine Critical Care Medicine | DX: R06.00 Dyspnea, unspecified (principal); J98.4 Other disorders of lung | CPT/HCPCS: 71046 ==

== ENCOUNTER 2022-09-04 12:33 | Outpatient (CLI) | payer MEDICARE | END 2022-09-04 12:34 | disposition home or self-care (01) | LOC: CT 12:33 | PROVIDERS: ATTEND Thoracic Surgery (Cardiothoracic Vascular Surgery) | DX: I71.20 Thoracic aortic aneurysm, without rupture, unspecified (principal); I71.40 Abdominal aortic aneurysm, without rupture, unspecified; K46.9 Unspecified abdominal hernia without obstruction or gangrene; Q61.02 Congenital multiple renal cysts | CPT/HCPCS: 71275; 74174; 82565; Q9967 ==

== ENCOUNTER 2022-09-20 13:31 | Outpatient (CLI) | payer MEDICARE | END 2022-09-20 13:32 | disposition home or self-care (01) | LOC: CT 13:31 | PROVIDERS: ATTEND Thoracic Surgery (Cardiothoracic Vascular Surgery) | DX: R09.89 Other specified symptoms and signs involving the circulatory and respiratory systems (principal) | CPT/HCPCS: 70498; 82565; Q9967 ==

== ENCOUNTER 2023-01-26 10:45 | Outpatient (CLI) | payer MEDICARE | END 2023-01-26 10:46 | disposition home or self-care (01) | LOC: RAD 10:45 | PROVIDERS: ATTEND Internal Medicine Critical Care Medicine | DX: R06.00 Dyspnea, unspecified (principal); R91.8 Other nonspecific abnormal finding of lung field; I51.7 Cardiomegaly; I77.89 Other specified disorders of arteries and arterioles | CPT/HCPCS: 71046 ==

== ENCOUNTER → 2023-02-08 | Outpatient (CLI) | payer MEDICARE | LOC: PET 12:30 | PROVIDERS: ATTEND Internal Medicine Critical Care Medicine | DX: R91.1 Solitary pulmonary nodule (principal) | CPT/HCPCS: 78815; A9552 ==

== ENCOUNTER 2023-09-02 23:14 | Inpatient (IN) | payer MEDICARE ==
[2023-09-03] MEDS ORDERED: Ondansetron PF 4 MG/2 ML Vial IVP PRN (01:29)
[2023-09-03] MEDS ORDERED: Acetaminophen 325 MG TAB PER TUBE PRN (01:29)
[2023-09-03] MEDS ORDERED: Ipratropium/Albuterol 3 ML NEB EZPAP PRN (01:33)
[2023-09-03] MEDS ORDERED: hydrALAZINE 20 MG/ML VIAL SLOW IVP PRN (01:34)
[2023-09-03] MEDS ORDERED: Dextrose 5% in Water 1,000 ML IV PRN (01:36)
[2023-09-03] MEDS ORDERED: Glucagon 1 MG/ML KIT IM PRN (01:36)
[2023-09-03] MEDS ORDERED: Dextrose 50% Abboject 50 ML SYRINGE SLOW IVP PRN (01:36)
[2023-09-03] MEDS ORDERED: Insulin Lispro 100 UNIT/ML 10 ML VIAL SC PRN ×2 (01:41)
[2023-09-03 02:01] VITALS: BMI 32.1
[2023-09-03] MEDS: Sodium Chloride 0.9% 1,000 ML IV SCH (02:15)
[2023-09-03] MEDS ORDERED: Morphine 4 MG/ML VIAL SLOW IVP SCH (03:00)
[2023-09-03] MEDS: Ketorolac Tromethamine 30 MG (1 mL) VIAL IVP SCH (03:30)
[2023-09-03 06:07] LABS: #Basophils Less than 0.03 10x3/uL (0.0-0.2); %Basophils 0.3 % (0.0-1.0); %Eosinophils 1.5 % (0.0-10.0); %Lymphocytes 14.6 % (21.0-51.0); %Monocytes 9.4 % (0.0-10.0); %Neutrophils 73.8 % (42.0-75.0); Hematocrit 46.6 % (42.0-52.0); Hemoglobin 15.3 g/dL (14.0-18.0); Mean Corpuscular HGB CONC 32.8 g/dL (32.0-36.0); Mean Corpuscular Hemoglobin 31.9 pg (27.0-31.0); Mean Corpuscular Volume 97.1 fL (78.0-98.0); Platelet Count 136 10x3/uL (130-400)
[2023-09-03 06:24] LABS: ALT (SGPT) 12 U/L (8-55); AST (SGOT) 10 U/L (5-34); Albumin 3.4 g/dL (3.4-4.8); Alkaline Phosphatase 53 U/L (40-110); Anion Gap 15 mmol/L (10-20); BUN (Urea Nitrogen) 31 mg/dL (8.4-25.7); Bilirubin, Total 1.3 mg/dL (0.2-1.2); Calc. Creatinine Clearance 67 mL/min (70-130); Calcium 8.4 mg/dL (7.8-10.44); Carbon Dioxide 21 mmol/L (23-31); Chloride 108 mmol/L (98-107); Estimated GFR 45; Globulin 3.1 g/dL (2.4-3.5); Glucose 138 mg/dL (83-110); Magnesium 2.3 mg/dL (1.6-2.6); Potassium 4.5 mmol/L (3.5-5.1); Protein, Total 6.5 g/dL (5.8-8.1); Sodium 139 mmol/L (136-145)
[2023-09-03] MEDS: metroNIDAZOLE 500 MG in Premix 1 BAG IVPB SCH (06:29)
[2023-09-03] MEDS: Ipratropium/Albuterol 3 ML NEB NEB SCH (07:09)
[2023-09-03] MEDS: Enoxaparin 40 MG (0.4 mL) SYRINGE SC SCH (08:34)
[2023-09-03] MEDS: Famotidine/PF 20 mg/2ml Vial SLOW IVP SCH (08:35)
[2023-09-03] MEDS: LevoFLOXacin 750 mg/D5W 750 MG in Premix 1 BAG IVPB SCH (08:35)
[2023-09-03] MEDS ORDERED: POTASSIUM CHLORIDE 20 MEQ PO SCH (09:00)
[2023-09-03] MEDS ORDERED: Furosemide 20 MG TAB PO SCH (09:00)
[2023-09-03] MEDS ORDERED: UBIDECARENONE 200 MG PO SCH (09:00)
[2023-09-03] MEDS ORDERED: Carvedilol 6.25 MG TAB PO SCH (09:00)
[2023-09-03] MEDS ORDERED: Non-Formulary Item 1 EACH (Sitagliptin Phosphate [Januvia] 50 MG Tab) PO SCH (09:00)
[2023-09-03] MEDS: CO Q-10 CAPSULE 100 MG PO SCH (09:54)
[2023-09-03] MEDS: Aspirin 81 mg Enteric Coated Tablet PO SCH (09:54)
[2023-09-03] MEDS: Clopidogrel Bisulfate 75 MG TAB PO SCH (09:54)
[2023-09-03] MEDS: Potassium Chloride 10 MEQ TAB PO SCH (09:54)
[2023-09-03] MEDS: Oxybutynin 5 MG TAB PO SCH (09:55)
[2023-09-03] MEDS: Empagliflozin 25 MG TAB PO SCH (09:56)
[2023-09-03] MEDS ORDERED: Ciprofloxacin Lactate/D5W 400 MG in Premix 1 BAG IVPB SCH (10:00)
[2023-09-03] MEDS: Multivitamin W/ Minerals 1 TAB PO SCH (20:09)
[2023-09-03] MEDS: Carvedilol 25 MG TAB PO SCH (20:09)
[2023-09-03] MEDS: Atorvastatin Calcium 40 MG TAB PO SCH (20:09)
[2023-09-03] MEDS ORDERED: Non-Formulary Item 1 EACH (Multivitamin With Minerals [Multiple Vitamin] 1 TABLET Tablet) PO SCH (21:00)
[2023-09-04 06:26] LABS: #Basophils 0.03 10x3/uL (0.0-0.2); %Basophils 0.7 % (0.0-1.0); %Eosinophils 4.8 % (0.0-10.0); %Lymphocytes 19.4 % (21.0-51.0); %Monocytes 10.4 % (0.0-10.0); %Neutrophils 64.3 % (42.0-75.0); Hematocrit 45.3 % (42.0-52.0); Hemoglobin 14.6 g/dL (14.0-18.0); Mean Corpuscular HGB CONC 32.2 g/dL (32.0-36.0); Mean Corpuscular Hemoglobin 31.7 pg (27.0-31.0); Mean Corpuscular Volume 98.3 fL (78.0-98.0); Platelet Count 135 10x3/uL (130-400); RBC Distribution Width 15.8 % (11.5-14.5); Red Blood Cell (RBC) Count 4.61 mill/uL (4.70-6.10)
[2023-09-04 06:47] LABS: ALT (SGPT) 8 U/L (8-55); AST (SGOT) 12 U/L (5-34); Albumin 3.2 g/dL (3.4-4.8); Alkaline Phosphatase 44 U/L (40-110); Anion Gap 11 mmol/L (10-20); BUN (Urea Nitrogen) 26 mg/dL (8.4-25.7); Bilirubin, Total 0.9 mg/dL (0.2-1.2); Calc. Creatinine Clearance 70 mL/min (70-130); Calcium 8.6 mg/dL (7.8-10.44); Carbon Dioxide 21 mmol/L (23-31); Chloride 112 mmol/L (98-107); Estimated GFR 48; Globulin 3.1 g/dL (2.4-3.5); Glucose 82 mg/dL (83-110); Magnesium 2.3 mg/dL (1.6-2.6); Potassium 4.3 mmol/L (3.5-5.1); Protein, Total 6.3 g/dL (5.8-8.1); Sodium 140 mmol/L (136-145)
[2023-09-04] MEDS: Alogliptin 25 MG TAB PO SCH (11:24)
[2023-09-04] MEDS: Furosemide 40 MG TAB PO SCH (11:24)
[2023-09-04 11:50] VITALS: BP 160/90; TEMP 98.8
== END 2023-09-04 16:40 | disposition home or self-care (01) | DRG 389 ==
LOC: SURG A 09-03 00:24
PROVIDERS: ADMIT Internal Medicine; ATTEND Internal Medicine
DX: K56.600 Partial intestinal obstruction, unspecified as to cause (principal); I50.42 Chronic combined systolic (congestive) and diastolic (congestive) heart failure; K57.32 Diverticulitis of large intestine without perforation or abscess without bleeding; J44.9 Chronic obstructive pulmonary disease, unspecified; I71.20 Thoracic aortic aneurysm, without rupture, unspecified; I71.40 Abdominal aortic aneurysm, without rupture, unspecified; G47.33 Obstructive sleep apnea (adult) (pediatric); K43.9 Ventral hernia without obstruction or gangrene; E11.51 Type 2 diabetes mellitus with diabetic peripheral angiopathy without gangrene; Z88.0 Allergy status to penicillin; Z79.899 Other long term (current) drug therapy; Z87.891 Personal history of nicotine dependence
CPT/HCPCS: 36415; 36416; 80053; 83735; 85025; 93880; 94640; J1650; J1885; J1956; J7050; J7620; S0028

== ENCOUNTER 2023-11-18 18:59 | Observation (INO) | payer MEDICARE ==
[2023-11-18] MEDS ORDERED: Insulin Lispro 100 UNIT/ML 10 ML VIAL SC PRN (19:34)
[2023-11-18] MEDS ORDERED: Dextrose 5% in Water 1,000 ML IV PRN (19:34)
[2023-11-18] MEDS ORDERED: Glucagon 1 MG/ML KIT IM PRN (19:34)
[2023-11-18] MEDS ORDERED: Dextrose 50% Abboject 50 ML SYRINGE SLOW IVP PRN (19:34)
[2023-11-18] MEDS ORDERED: Morphine 2 MG/ML VIAL SLOW IVP PRN (19:34)
[2023-11-18] MEDS ORDERED: Morphine 4 MG/ML VIAL SLOW IVP PRN (19:34)
[2023-11-18] MEDS ORDERED: Ondansetron PF 4 MG/2 ML Vial IVP PRN (19:50)
[2023-11-18 20:18] VITALS: BMI 32.1
[2023-11-19 06:39] LABS: #Basophils Less than 0.03 10x3/uL (0.0-0.2); %Basophils 0.4 % (0.0-1.0); %Eosinophils 2.3 % (0.0-10.0); %Lymphocytes 14.3 % (21.0-51.0); %Monocytes 9.2 % (0.0-10.0); %Neutrophils 73.6 % (42.0-75.0); Hematocrit 48.8 % (42.0-52.0); Hemoglobin 16.1 g/dL (14.0-18.0); Mean Platelet Volume 8.7 fL (7.4-10.4); Platelet Count 123 10x3/uL (130-400); RBC Distribution Width 15.8 % (11.5-14.5); Red Blood Cell (RBC) Count 5.03 mill/uL (4.70-6.10)
[2023-11-19 06:40] LABS: ALT (SGPT) 9 U/L (8-55); AST (SGOT) 10 U/L (5-34); Albumin 3.6 g/dL (3.4-4.8); Alkaline Phosphatase 53 U/L (40-110); Anion Gap 13 mmol/L (10-20); BUN (Urea Nitrogen) 29 mg/dL (8.4-25.7); Bilirubin, Total 1.3 mg/dL (0.2-1.2); Calc. Creatinine Clearance 77 mL/min (70-130); Calcium 8.8 mg/dL (7.8-10.44); Carbon Dioxide 19 mmol/L (23-31); Chloride 108 mmol/L (98-107); Estimated GFR 54; Globulin 3.2 g/dL (2.4-3.5); Glucose 122 mg/dL (83-110); Potassium 4.5 mmol/L (3.5-5.1); Protein, Total 6.8 g/dL (5.8-8.1); Sodium 135 mmol/L (136-145)
[2023-11-19] MEDS ORDERED: hydrALAZINE 20 MG/ML VIAL SLOW IVP PRN (08:14)
[2023-11-19] MEDS: Empagliflozin 25 MG TAB PO SCH (08:36)
[2023-11-19] MEDS: Oxybutynin 5 MG TAB PO SCH (08:36)
[2023-11-19] MEDS: Carvedilol 25 MG TAB PO SCH (08:36)
[2023-11-19] MEDS: Alogliptin 25 MG TAB PO SCH (08:36)
[2023-11-19] MEDS: Enoxaparin 40 MG (0.4 mL) SYRINGE SC SCH (08:37)
[2023-11-19 11:54] VITALS: BP 96/66; TEMP 98.1
[2023-11-19] MEDS ORDERED: Atorvastatin Calcium 40 MG TAB PO SCH (21:00)
[2023-11-20] MEDS ORDERED: FLU (Fluad Triv) TS24-25 (65UP)/MF59C/PF 45 MCG/0.5 ML Syringe IM ONE (09:00)
== END 2023-11-19 11:59 | disposition home or self-care (01) ==
LOC: SURG B 19:14
PROVIDERS: ADMIT Family Medicine; ATTEND Internal Medicine
DX: I25.10 Atherosclerotic heart disease of native coronary artery without angina pectoris (principal); J44.9 Chronic obstructive pulmonary disease, unspecified; I11.0 Hypertensive heart disease with heart failure; I50.42 Chronic combined systolic (congestive) and diastolic (congestive) heart failure; I73.9 Peripheral vascular disease, unspecified; E11.9 Type 2 diabetes mellitus without complications; G47.33 Obstructive sleep apnea (adult) (pediatric); K58.9 Irritable bowel syndrome, unspecified; Z87.891 Personal history of nicotine dependence; Z95.1 Presence of aortocoronary bypass graft; Z79.899 Other long term (current) drug therapy; Z88.0 Allergy status to penicillin
CPT/HCPCS: 80053; 82962 ×2; 85025; G0378 ×2; 36415; 36416

== ENCOUNTER 2024-08-12 15:31 | Outpatient (CLI) | payer MEDICARE | END 2024-08-12 15:32 | disposition home or self-care (01) | LOC: RAD 15:31 | PROVIDERS: ATTEND Thoracic Surgery (Cardiothoracic Vascular Surgery) | DX: J86.9 Pyothorax without fistula (principal); J90 Pleural effusion, not elsewhere classified; J98.4 Other disorders of lung; R09.89 Other specified symptoms and signs involving the circulatory and respiratory systems | CPT/HCPCS: 71046 ==

== ENCOUNTER 2024-09-11 13:45 | Inpatient (IN) | payer MEDICARE ==
[2024-09-11 14:11] LABS: Hematocrit 27.7 % (42.0-52.0); Hemoglobin 7.9 g/dL (14.0-18.0); Mean Corpuscular Hemoglobin 26.3 pg (27.0-31.0); Mean Corpuscular Volume 92.3 fL (78.0-98.0); Platelet Count 144 10x3/uL (130-400); Red Blood Cell (RBC) Count 3.00 mill/uL (4.70-6.10); White Blood Cell (WBC) Count 3.41 10x3/uL (4.8-10.8)
[2024-09-11] MEDS ORDERED: Furosemide 40 MG (4 mL) VIAL ONE (14:16)
[2024-09-11 14:24] LABS: ALT (SGPT) 8 U/L (Less than 45); AST (SGOT) 19 U/L (11-34); Albumin 3.0 g/dL (3.1-4.5); Alkaline Phosphatase 72 U/L (40-110); Anion Gap 12 mmol/L (10-20); BUN (Urea Nitrogen) 30 mg/dL (8.4-25.7); Bilirubin, Total 0.4 mg/dL (0.3-1.2); Calc. Creatinine Clearance 0 mL/min (70-130); Calcium 8.4 mg/dL (7.8-10.44); Carbon Dioxide 21 mmol/L (23-31); Chloride 109 mmol/L (98-107); Globulin 3.9 g/dL (2.4-3.5); Glucose 137 mg/dL (83-110); Potassium 4.1 mmol/L (3.5-5.1); Sodium 138 mmol/L (136-145)
[2024-09-11 14:28] LABS: Troponin I 0.065 ng/mL (< 0.028)
[2024-09-11 14:29] LABS: Anisocytosis MODERATE=16-30 cells HPF (0-5); Burr Cells SLIGHT = 2-5 cells HPF (0-1); Macrocytosis MODERATE=16-30 cells HPF (0-5); Ovalocytes SLIGHT = 2-5 cells HPF (0-1); Plasma Cells 2 % (0-0); Platelet Adequacy Comment Platelets Normal; Polychromasia SLIGHT = 2-3 cells HPF (0-2); Schistocytes SLIGHT = 2-5 cells HPF (0-1); Smudge Cells 2.0 %
[2024-09-11] MEDS ORDERED: Nitroglycerin 0.4 MG TAB (25 Tab Bottle) SL PRN (17:21)
[2024-09-11] MEDS ORDERED: Sodium Chloride 0.65% Nasal 44 ML BOT EA NARE PRN (18:27)
[2024-09-11] MEDS ORDERED: Glucagon 1 MG/ML KIT IM PRN (18:28)
[2024-09-11] MEDS ORDERED: Dextrose 50% Abboject 50 ML SYRINGE SLOW IVP PRN (18:28)
[2024-09-11 18:57] VITALS: BMI 33.1
[2024-09-11] MEDS: Aspirin 325 MG TAB PO SCH (19:03)
[2024-09-11 19:30] LABS: Magnesium 2.2 mg/dL (1.6-2.6)
[2024-09-11 19:37] LABS: Troponin I 0.077 ng/mL (< 0.028)
[2024-09-11] MEDS: Vancomycin (BATCH) 2.5 GM in Premix 1 BAG IVPB SCH (20:50)
[2024-09-11] MEDS ORDERED: Vancomycin 1 GM in Premix 1 BAG IVPB SCH (21:00)
[2024-09-12 01:44] LABS: Troponin I 0.070 ng/mL (< 0.028)
[2024-09-12 04:53] LABS: #Basophils 0.03 10x3/uL (0.0-0.2); #Eosinophils 0.19 10x3/uL (0.0-0.7); #Monocytes 0.52 10x3/uL (0.11-0.59); #Neutrophils 1.58 10x3/uL (1.40-6.50); %Basophils 0.9 % (0.0-1.0); %Eosinophils 5.7 % (0.0-10.0); %Lymphocytes 31.0 % (21.0-51.0); %Monocytes 15.5 % (0.0-10.0); %Neutrophils 46.9 % (42.0-75.0); Hematocrit 29.0 % (42.0-52.0); Hemoglobin 8.3 g/dL (14.0-18.0); Mean Corpuscular Hemoglobin 26.2 pg (27.0-31.0); Mean Corpuscular Volume 91.5 fL (78.0-98.0); Platelet Count 128 10x3/uL (130-400); Red Blood Cell (RBC) Count 3.17 mill/uL (4.70-6.10); White Blood Cell (WBC) Count 3.36 10x3/uL (4.8-10.8)
[2024-09-12 05:21] LABS: Anion Gap 11 mmol/L (10-20); BUN (Urea Nitrogen) 30 mg/dL (8.4-25.7); Calc. Creatinine Clearance 66 mL/min (70-130); Calcium 8.3 mg/dL (7.8-10.44); Carbon Dioxide 21 mmol/L (23-31); Chloride 110 mmol/L (98-107); Glucose 178 mg/dL (83-110); Magnesium 2.2 mg/dL (1.6-2.6); Potassium 3.8 mmol/L (3.5-5.1); Sodium 138 mmol/L (136-145)
[2024-09-12 05:23] LABS: Vancomycin, Random 25.1 ug/mL (See Comment)
[2024-09-12] MEDS: Furosemide 40 MG (4 mL) VIAL SLOW IVP SCH ×3 (05:53→14:28)
[2024-09-12] MEDS: Aspirin Chewable 81 MG TAB PO SCH (09:05)
[2024-09-12] MEDS: Dapagliflozin Propanediol 10 MG TAB PO SCH (09:05)
[2024-09-12] MEDS: Vancomycin 1.5 GM / NS 500 ML VIAL-2-BAG IVPB SCH (09:05)
[2024-09-12] MEDS: Albumin 25% 25 GM (100 mL) BOT IVPB SCH (12:20)
[2024-09-12] MEDS ORDERED: Sacubitril 24MG/Valsartan 26 MG TAB PO SCH (21:00)
[2024-09-12] MEDS: Sacubitril 24MG/Valsartan 26 MG TAB PO SCH (22:59)
[2024-09-13 05:15] LABS: Iron 18 ug/dL (65-175); Iron Binding Capacity, Total 256 mcg/dL (261-462)
[2024-09-13] MEDS: Furosemide 20 MG (2 mL) VIAL SLOW IVP SCH (06:05)
[2024-09-13] MEDS: Vancomycin 1.25 GM / NS 250 ML VIAL-2-BAG IVPB SCH (09:17)
[2024-09-13] MEDS: Apixaban 5 MG TAB PO SCH (09:18)
[2024-09-13 09:51] LABS: Hematocrit 26.1 % (42.0-52.0); Hemoglobin 7.5 g/dL (14.0-18.0); Mean Corpuscular Hemoglobin 26.1 pg (27.0-31.0); Mean Corpuscular Volume 90.9 fL (78.0-98.0); Platelet Count 109 10x3/uL (130-400); Red Blood Cell (RBC) Count 2.87 mill/uL (4.70-6.10); White Blood Cell (WBC) Count 3.53 10x3/uL (4.8-10.8)
[2024-09-13 09:52] LABS: #Basophils Less than 0.03 10x3/uL (0.0-0.2); #Eosinophils 0.12 10x3/uL (0.0-0.7); #Monocytes 0.42 10x3/uL (0.11-0.59); #Neutrophils 2.20 10x3/uL (1.40-6.50); %Basophils 0.6 % (0.0-1.0); %Eosinophils 3.5 % (0.0-10.0); %Lymphocytes 19.2 % (21.0-51.0); %Monocytes 12.2 % (0.0-10.0); %Neutrophils 64.2 % (42.0-75.0)
[2024-09-13 09:54] LABS: ALT (SGPT) 8 U/L (Less than 45); AST (SGOT) 16 U/L (11-34); Albumin 3.5 g/dL (3.1-4.5); Alkaline Phosphatase 54 U/L (40-110); Anion Gap 13 mmol/L (10-20); BUN (Urea Nitrogen) 33 mg/dL (8.4-25.7); Bilirubin, Total 0.7 mg/dL (0.3-1.2); Calc. Creatinine Clearance 60 mL/min (70-130); Calcium 8.2 mg/dL (7.8-10.44); Carbon Dioxide 22 mmol/L (23-31); Chloride 109 mmol/L (98-107); Globulin 3.2 g/dL (2.4-3.5); Glucose 208 mg/dL (83-110); Magnesium 2.2 mg/dL (1.6-2.6); Potassium 4.1 mmol/L (3.5-5.1); Sodium 140 mmol/L (136-145)
[2024-09-13 10:16] LABS: Anisocytosis MODERATE=16-30 cells HPF (0-5); Platelet Adequacy Comment Platelets Normal; Polychromasia SLIGHT = 2-3 cells HPF (0-2); Schistocytes SLIGHT = 2-5 cells HPF (0-1)
[2024-09-14 05:14] LABS: #Basophils Less than 0.03 10x3/uL (0.0-0.2); #Eosinophils 0.20 10x3/uL (0.0-0.7); #Monocytes 0.48 10x3/uL (0.11-0.59); #Neutrophils 1.85 10x3/uL (1.40-6.50); %Basophils 0.6 % (0.0-1.0); %Eosinophils 5.8 % (0.0-10.0); %Lymphocytes 26.2 % (21.0-51.0); %Monocytes 13.8 % (0.0-10.0); %Neutrophils 53.3 % (42.0-75.0); Hematocrit 28.7 % (42.0-52.0); Hemoglobin 8.4 g/dL (14.0-18.0); Mean Corpuscular Hemoglobin 25.8 pg (27.0-31.0); Mean Corpuscular Volume 88.0 fL (78.0-98.0); Platelet Count 117 10x3/uL (130-400); Red Blood Cell (RBC) Count 3.26 mill/uL (4.70-6.10); White Blood Cell (WBC) Count 3.47 10x3/uL (4.8-10.8)
[2024-09-14 05:30] LABS: ALT (SGPT) 9 U/L (Less than 45); AST (SGOT) 23 U/L (11-34); Albumin 3.4 g/dL (3.1-4.5); Alkaline Phosphatase 60 U/L (40-110); Anion Gap 12 mmol/L (10-20); BUN (Urea Nitrogen) 31 mg/dL (8.4-25.7); Bilirubin, Total 0.8 mg/dL (0.3-1.2); Calc. Creatinine Clearance 63 mL/min (70-130); Calcium 8.2 mg/dL (7.8-10.44); Carbon Dioxide 23 mmol/L (23-31); Chloride 109 mmol/L (98-107); Globulin 3.6 g/dL (2.4-3.5); Glucose 143 mg/dL (83-110); Magnesium 2.2 mg/dL (1.6-2.6); Potassium 4.3 mmol/L (3.5-5.1); Sodium 140 mmol/L (136-145)
[2024-09-15 05:13] LABS: #Basophils 0.04 10x3/uL (0.0-0.2); #Eosinophils 0.25 10x3/uL (0.0-0.7); #Monocytes 0.56 10x3/uL (0.11-0.59); #Neutrophils 2.15 10x3/uL (1.40-6.50); %Basophils 1.0 % (0.0-1.0); %Eosinophils 6.2 % (0.0-10.0); %Lymphocytes 25.9 % (21.0-51.0); %Monocytes 13.8 % (0.0-10.0); %Neutrophils 52.9 % (42.0-75.0); Hematocrit 26.0 % (42.0-52.0); Hemoglobin 7.7 g/dL (14.0-18.0); Mean Corpuscular Hemoglobin 25.9 pg (27.0-31.0); Mean Corpuscular Volume 87.5 fL (78.0-98.0); Platelet Count 126 10x3/uL (130-400); Red Blood Cell (RBC) Count 2.97 mill/uL (4.70-6.10); White Blood Cell (WBC) Count 4.06 10x3/uL (4.8-10.8)
[2024-09-15 05:39] LABS: Vancomycin, Random 29.9 ug/mL (See Comment)
[2024-09-15 05:45] LABS: ALT (SGPT) 8 U/L (Less than 45); AST (SGOT) 18 U/L (11-34); Albumin 3.1 g/dL (3.1-4.5); Alkaline Phosphatase 57 U/L (40-110); Anion Gap 13 mmol/L (10-20); BUN (Urea Nitrogen) 36 mg/dL (8.4-25.7); Bilirubin, Total 0.8 mg/dL (0.3-1.2); Calc. Creatinine Clearance 64 mL/min (70-130); Calcium 8.4 mg/dL (7.8-10.44); Carbon Dioxide 27 mmol/L (23-31); Chloride 102 mmol/L (98-107); Globulin 3.5 g/dL (2.4-3.5); Glucose 140 mg/dL (83-110); Magnesium 2.1 mg/dL (1.6-2.6); Potassium 3.1 mmol/L (3.5-5.1); Sodium 139 mmol/L (136-145)
[2024-09-15] MEDS: Spironolactone 25 MG TAB PO SCH (08:33)
[2024-09-15] MEDS: Furosemide 40 MG (4 mL) VIAL SLOW IVP SCH (16:36)
[2024-09-16 04:44] LABS: #Basophils 0.03 10x3/uL (0.0-0.2); #Eosinophils 0.23 10x3/uL (0.0-0.7); #Monocytes 0.57 10x3/uL (0.11-0.59); #Neutrophils 2.04 10x3/uL (1.40-6.50); %Basophils 0.8 % (0.0-1.0); %Eosinophils 5.8 % (0.0-10.0); %Lymphocytes 28.3 % (21.0-51.0); %Monocytes 14.3 % (0.0-10.0); %Neutrophils 50.8 % (42.0-75.0); Hematocrit 28.5 % (42.0-52.0); Hemoglobin 8.3 g/dL (14.0-18.0); Mean Corpuscular Hemoglobin 25.1 pg (27.0-31.0); Mean Corpuscular Volume 86.1 fL (78.0-98.0); Platelet Count 132 10x3/uL (130-400); Red Blood Cell (RBC) Count 3.31 mill/uL (4.70-6.10); White Blood Cell (WBC) Count 4.00 10x3/uL (4.8-10.8)
[2024-09-16 05:00] LABS: Anion Gap 13 mmol/L (10-20); BUN (Urea Nitrogen) 35 mg/dL (8.4-25.7); Calc. Creatinine Clearance 54 mL/min (70-130); Calcium 8.8 mg/dL (7.8-10.44); Carbon Dioxide 30 mmol/L (23-31); Chloride 99 mmol/L (98-107); Glucose 144 mg/dL (83-110); Potassium 3.5 mmol/L (3.5-5.1); Sodium 138 mmol/L (136-145)
[2024-09-16 05:04] LABS: Vancomycin, Random 34.0 ug/mL (See Comment)
[2024-09-16] MEDS: Vancomycin HCl 750 MG in Sodium Chloride 0.9% 250 ML 250 ML IVPB SCH (10:26)
[2024-09-16] MEDS: Amoxicillin/Potassium Clav 500 MG TAB PO SCH (21:08)
[2024-09-17 04:50] LABS: #Basophils 0.03 10x3/uL (0.0-0.2); #Eosinophils 0.26 10x3/uL (0.0-0.7); #Monocytes 0.61 10x3/uL (0.11-0.59); #Neutrophils 1.76 10x3/uL (1.40-6.50); %Basophils 0.8 % (0.0-1.0); %Eosinophils 6.9 % (0.0-10.0); %Lymphocytes 29.4 % (21.0-51.0); %Monocytes 16.1 % (0.0-10.0); %Neutrophils 46.5 % (42.0-75.0); Hematocrit 27.6 % (42.0-52.0); Hemoglobin 8.1 g/dL (14.0-18.0); Mean Corpuscular Hemoglobin 25.2 pg (27.0-31.0); Mean Corpuscular Volume 85.7 fL (78.0-98.0); Platelet Count 142 10x3/uL (130-400); Red Blood Cell (RBC) Count 3.22 mill/uL (4.70-6.10); White Blood Cell (WBC) Count 3.78 10x3/uL (4.8-10.8)
[2024-09-17 04:58] LABS: Anion Gap 14 mmol/L (10-20); BUN (Urea Nitrogen) 37 mg/dL (8.4-25.7); Calc. Creatinine Clearance 53 mL/min (70-130); Calcium 8.8 mg/dL (7.8-10.44); Carbon Dioxide 28 mmol/L (23-31); Chloride 98 mmol/L (98-107); Glucose 150 mg/dL (83-110); Potassium 3.5 mmol/L (3.5-5.1); Sodium 136 mmol/L (136-145)
[2024-09-18 04:39] LABS: Hematocrit 25.7 % (42.0-52.0); Hemoglobin 7.5 g/dL (14.0-18.0); Mean Corpuscular Hemoglobin 25.3 pg (27.0-31.0); Mean Corpuscular Volume 86.8 fL (78.0-98.0); Platelet Count 123 10x3/uL (130-400); Red Blood Cell (RBC) Count 2.96 mill/uL (4.70-6.10); White Blood Cell (WBC) Count 3.58 10x3/uL (4.8-10.8)
[2024-09-18 04:51] LABS: Anion Gap 13 mmol/L (10-20); BUN (Urea Nitrogen) 43 mg/dL (8.4-25.7); Calc. Creatinine Clearance 54 mL/min (70-130); Calcium 8.5 mg/dL (7.8-10.44); Carbon Dioxide 28 mmol/L (23-31); Chloride 99 mmol/L (98-107); Glucose 152 mg/dL (83-110); Potassium 3.7 mmol/L (3.5-5.1); Sodium 136 mmol/L (136-145)
[2024-09-18 15:56] VITALS: BMI 29.7
[2024-09-18 18:55] LABS: Hemoglobin 7.7 g/dL (14.0-18.0)
[2024-09-18 19:09] LABS: BUN (Urea Nitrogen) 45.0 mg/dL (8.4-25.7); Calc. Creatinine Clearance 57.0 mL/min (70-130)
[2024-09-19 06:38] LABS: Hematocrit 29.4 % (42.0-52.0); Hemoglobin 8.6 g/dL (14.0-18.0); Mean Corpuscular Hemoglobin 25.6 pg (27.0-31.0); Mean Corpuscular Volume 87.5 fL (78.0-98.0); Platelet Count 123 10x3/uL (130-400); Red Blood Cell (RBC) Count 3.36 mill/uL (4.70-6.10); White Blood Cell (WBC) Count 4.02 10x3/uL (4.8-10.8)
[2024-09-19 07:13] LABS: Anion Gap 13 mmol/L (10-20); BUN (Urea Nitrogen) 48 mg/dL (8.4-25.7); Calc. Creatinine Clearance 58 mL/min (70-130); Calcium 8.9 mg/dL (7.8-10.44); Carbon Dioxide 26 mmol/L (23-31); Chloride 102 mmol/L (98-107); Glucose 158 mg/dL (83-110); Magnesium 2.4 mg/dL (1.6-2.6); Potassium 4.2 mmol/L (3.5-5.1); Sodium 137 mmol/L (136-145)
[2024-09-19] MEDS: Carvedilol 3.125 MG TAB PO SCH (08:44)
[2024-09-20 04:20] LABS: Hematocrit 29.9 % (42.0-52.0); Hemoglobin 8.7 g/dL (14.0-18.0); Mean Corpuscular Hemoglobin 25.2 pg (27.0-31.0); Mean Corpuscular Volume 86.7 fL (78.0-98.0); Platelet Count 128 10x3/uL (130-400); Red Blood Cell (RBC) Count 3.45 mill/uL (4.70-6.10); White Blood Cell (WBC) Count 4.14 10x3/uL (4.8-10.8)
[2024-09-20 04:55] LABS: Anion Gap 16 mmol/L (10-20); BUN (Urea Nitrogen) 47 mg/dL (8.4-25.7); Calc. Creatinine Clearance 63 mL/min (70-130); Calcium 9.0 mg/dL (7.8-10.44); Carbon Dioxide 25 mmol/L (23-31); Chloride 103 mmol/L (98-107); Glucose 163 mg/dL (83-110); Magnesium 2.5 mg/dL (1.6-2.6); Potassium 4.6 mmol/L (3.5-5.1); Sodium 139 mmol/L (136-145)
[2024-09-21 04:34] LABS: Hematocrit 28.6 % (42.0-52.0); Hemoglobin 8.3 g/dL (14.0-18.0); Mean Corpuscular Hemoglobin 25.4 pg (27.0-31.0); Mean Corpuscular Volume 87.5 fL (78.0-98.0); Platelet Count 123 10x3/uL (130-400); Red Blood Cell (RBC) Count 3.27 mill/uL (4.70-6.10); White Blood Cell (WBC) Count 4.10 10x3/uL (4.8-10.8)
[2024-09-21 05:06] LABS: Anion Gap 14 mmol/L (10-20); BUN (Urea Nitrogen) 58 mg/dL (8.4-25.7); Calc. Creatinine Clearance 64 mL/min (70-130); Calcium 9.0 mg/dL (7.8-10.44); Carbon Dioxide 26 mmol/L (23-31); Chloride 103 mmol/L (98-107); Glucose 134 mg/dL (83-110); Magnesium 2.5 mg/dL (1.6-2.6); Potassium 4.5 mmol/L (3.5-5.1); Sodium 138 mmol/L (136-145)
[2024-09-21 12:46] VITALS: TEMP 97.6
[2024-09-21 17:32] VITALS: BP 147/79
== END 2024-09-21 18:13 | disposition home health service (06) | DRG 291 ==
LOC: ERS 13:45 → 2NO 17:30
PROVIDERS: ADMIT Hospitalist; ATTEND Internal Medicine
PROC: 3E03329 Introduction of Other Anti-infective into Peripheral Vein, Percutaneous Approach (ICD-10-PCS; principal; 2024-09-11)
PROC: 30233N1 Transfusion of Nonautologous Red Blood Cells into Peripheral Vein, Percutaneous Approach (ICD-10-PCS; 2024-09-19)
DX: I13.0 Hypertensive heart and chronic kidney disease with heart failure and stage 1 through stage 4 chronic kidney disease, or unspecified chronic kidney disease (principal); I50.43 Acute on chronic combined systolic (congestive) and diastolic (congestive) heart failure; J96.11 Chronic respiratory failure with hypoxia; I82.621 Acute embolism and thrombosis of deep veins of right upper extremity; I25.10 Atherosclerotic heart disease of native coronary artery without angina pectoris; G47.33 Obstructive sleep apnea (adult) (pediatric); E11.51 Type 2 diabetes mellitus with diabetic peripheral angiopathy without gangrene; I5A Non-ischemic myocardial injury (non-traumatic); E11.22 Type 2 diabetes mellitus with diabetic chronic kidney disease; D63.1 Anemia in chronic kidney disease; N18.30 Chronic kidney disease, stage 3 unspecified; J44.9 Chronic obstructive pulmonary disease, unspecified; E11.628 Type 2 diabetes mellitus with other skin complications; L03.032 Cellulitis of left toe; I71.40 Abdominal aortic aneurysm, without rupture, unspecified; I25.5 Ischemic cardiomyopathy; E78.5 Hyperlipidemia, unspecified; I95.9 Hypotension, unspecified; E87.6 Hypokalemia; Z95.0 Presence of cardiac pacemaker; Z95.1 Presence of aortocoronary bypass graft; Z98.890 Other specified postprocedural states; Z99.81 Dependence on supplemental oxygen; Z79.82 Long term (current) use of aspirin; Z79.899 Other long term (current) drug therapy
CPT/HCPCS: 36415; 36416; 36430; 71045; 80048; 80053; 80202; 82306; 82728; 83540; 83550; 83735; 83880; 83970; 84100; 84443; 84484; 85025; 85027; 85046; 86141; 86850; 86860; 86870; 86880; 86900; 86901; 86922; 93005; 93798; 96374; 97139; J0692; J1815; J1940; J3373; J7030; J7050; P9016; P9047

== ENCOUNTER 2024-11-06 20:23 | Inpatient (IN) | payer MEDICARE ==
[2024-11-06] MEDS ORDERED: Furosemide 40 MG (4 mL) VIAL ONE (20:44)
[2024-11-06] MEDS ORDERED: Nitroglycerin 2% Ointment 1 INCH/1 GM Packet ONE (20:44)
[2024-11-06 21:27] LABS: #Basophils Less than 0.03 10x3/uL (0.0-0.2); #Eosinophils 0.14 10x3/uL (0.0-0.7); #Monocytes 0.67 10x3/uL (0.11-0.59); #Neutrophils 2.60 10x3/uL (1.40-6.50); %Basophils 0.5 % (0.0-1.0); %Eosinophils 3.2 % (0.0-10.0); %Lymphocytes 22.2 % (21.0-51.0); %Monocytes 15.2 % (0.0-10.0); %Neutrophils 58.9 % (42.0-75.0); Hematocrit 31.3 % (42.0-52.0); Hemoglobin 9.1 g/dL (14.0-18.0); Mean Corpuscular Hemoglobin 22.3 pg (27.0-31.0); Mean Corpuscular Volume 76.7 fL (78.0-98.0); Platelet Count 116 10x3/uL (130-400); Red Blood Cell (RBC) Count 4.08 mill/uL (4.70-6.10); White Blood Cell (WBC) Count 4.41 10x3/uL (4.8-10.8)
[2024-11-06 21:38] LABS: Actual Bicarbonate (HCO3a) 21.3 mEq/L (22-28); Base Excess (BEa) -0.9 mEq/L (-2.0 to +3.0); CO2 Tension 27.4 mmHg (35.0-45.0); Calcium, Ionized (arterial) 1.10 mmol/L (1.12-1.30); Hematocrit-ABG 29 % (42.0-52.0); Hemoglobin (Hb) 9.9 g/dL (14.0-18.0); O2 Tension (PaO2), arterial 140.0 mmHg (> 70.0); Potassium - ABG Lab 3.96 mmol/L (3.70-5.30); pH, Arterial 7.509 (7.35-7.45)
[2024-11-06 21:48] LABS: ALT (SGPT) 9 U/L (Less than 45); AST (SGOT) 29 U/L (11-34); Albumin 3.3 g/dL (3.1-4.5); Alkaline Phosphatase 77 U/L (40-110); Anion Gap 16 mmol/L (10-20); BUN (Urea Nitrogen) 47 mg/dL (8.4-25.7); Bilirubin, Total 0.5 mg/dL (0.3-1.2); Calc. Creatinine Clearance 0 mL/min (70-130); Calcium 8.8 mg/dL (7.8-10.44); Carbon Dioxide 24 mmol/L (23-31); Chloride 104 mmol/L (98-107); Globulin 4.2 g/dL (2.4-3.5); Glucose 128 mg/dL (83-110); Lipase 27 U/L (8-78); Potassium 4.7 mmol/L (3.5-5.1); Sodium 139 mmol/L (136-145)
[2024-11-06] MEDS ORDERED: Ondansetron PF 4 MG/2 ML Vial IVP PRN (23:03)
[2024-11-06] MEDS ORDERED: Glucagon 1 MG/ML KIT IM PRN (23:06)
[2024-11-06] MEDS ORDERED: Dextrose 50% Abboject 50 ML SYRINGE SLOW IVP PRN (23:06)
[2024-11-07 00:54] VITALS: BMI 33.4
[2024-11-07 05:11] LABS: #Basophils Less than 0.03 10x3/uL (0.0-0.2); #Eosinophils 0.15 10x3/uL (0.0-0.7); #Monocytes 0.58 10x3/uL (0.11-0.59); #Neutrophils 2.49 10x3/uL (1.40-6.50); %Basophils 0.5 % (0.0-1.0); %Eosinophils 3.7 % (0.0-10.0); %Lymphocytes 21.0 % (21.0-51.0); %Monocytes 14.1 % (0.0-10.0); %Neutrophils 60.7 % (42.0-75.0); Hematocrit 28.9 % (42.0-52.0); Hemoglobin 8.5 g/dL (14.0-18.0); Mean Corpuscular Hemoglobin 22.1 pg (27.0-31.0); Mean Corpuscular Volume 75.3 fL (78.0-98.0); Platelet Count 114 10x3/uL (130-400); Red Blood Cell (RBC) Count 3.84 mill/uL (4.70-6.10); White Blood Cell (WBC) Count 4.10 10x3/uL (4.8-10.8)
[2024-11-07 05:23] LABS: Anion Gap 13 mmol/L (10-20); BUN (Urea Nitrogen) 46 mg/dL (8.4-25.7); Calc. Creatinine Clearance 47 mL/min (70-130); Calcium 8.5 mg/dL (7.8-10.44); Carbon Dioxide 26 mmol/L (23-31); Chloride 104 mmol/L (98-107); Glucose 80 mg/dL (83-110); Potassium 3.7 mmol/L (3.5-5.1); Sodium 139 mmol/L (136-145)
[2024-11-07] MEDS: Furosemide 40 MG (4 mL) VIAL SLOW IVP SCH (06:52)
[2024-11-07] MEDS: Heparin 5,000 UNITS/ML VIAL SC SCH (10:30)
[2024-11-07] MEDS: Aspirin 81 mg Enteric Coated Tablet PO SCH (10:33)
[2024-11-07] MEDS: Carvedilol 3.125 MG TAB PO SCH (10:33)
[2024-11-07] MEDS: Oxybutynin 5 MG TAB PO SCH (10:33)
[2024-11-07] MEDS: Acetaminophen 325 MG TAB PO PRN (10:38)
[2024-11-08 02:09] LABS: Protein, Urine Random Quant 19.0 mg/dL (1-14)
[2024-11-08 04:42] LABS: #Basophils 0.03 10x3/uL (0.0-0.2); #Eosinophils 0.13 10x3/uL (0.0-0.7); #Monocytes 0.63 10x3/uL (0.11-0.59); #Neutrophils 2.78 10x3/uL (1.40-6.50); %Basophils 0.7 % (0.0-1.0); %Eosinophils 3.0 % (0.0-10.0); %Lymphocytes 18.5 % (21.0-51.0); %Monocytes 14.4 % (0.0-10.0); %Neutrophils 63.2 % (42.0-75.0); Hematocrit 28.0 % (42.0-52.0); Hemoglobin 8.1 g/dL (14.0-18.0); Mean Corpuscular Hemoglobin 22.0 pg (27.0-31.0); Mean Corpuscular Volume 76.1 fL (78.0-98.0); Platelet Count 109 10x3/uL (130-400); Red Blood Cell (RBC) Count 3.68 mill/uL (4.70-6.10); White Blood Cell (WBC) Count 4.39 10x3/uL (4.8-10.8)
[2024-11-08 04:51] LABS: Iron 17 ug/dL (65-175); Iron Binding Capacity, Total 305 mcg/dL (261-462)
[2024-11-08 04:54] LABS: Anion Gap 13 mmol/L (10-20); BUN (Urea Nitrogen) 45 mg/dL (8.4-25.7); Calc. Creatinine Clearance 51 mL/min (70-130); Calcium 8.5 mg/dL (7.8-10.44); Carbon Dioxide 25 mmol/L (23-31); Chloride 106 mmol/L (98-107); Glucose 114 mg/dL (83-110); Potassium 4.0 mmol/L (3.5-5.1); Sodium 140 mmol/L (136-145)
[2024-11-08] MEDS: EPOETIN ALFA-EPBX (ESRD) 10,000 UNITS/ML VIAL SC SCH (13:40)
[2024-11-09 04:49] LABS: #Basophils Less than 0.03 10x3/uL (0.0-0.2); #Eosinophils 0.16 10x3/uL (0.0-0.7); #Monocytes 0.75 10x3/uL (0.11-0.59); #Neutrophils 3.70 10x3/uL (1.40-6.50); %Basophils 0.4 % (0.0-1.0); %Eosinophils 2.8 % (0.0-10.0); %Lymphocytes 18.0 % (21.0-51.0); %Monocytes 13.2 % (0.0-10.0); %Neutrophils 65.2 % (42.0-75.0); Hematocrit 29.0 % (42.0-52.0); Hemoglobin 8.4 g/dL (14.0-18.0); Mean Corpuscular Hemoglobin 22.4 pg (27.0-31.0); Mean Corpuscular Volume 77.3 fL (78.0-98.0); Platelet Count 109 10x3/uL (130-400); Red Blood Cell (RBC) Count 3.75 mill/uL (4.70-6.10); White Blood Cell (WBC) Count 5.67 10x3/uL (4.8-10.8)
[2024-11-09 05:02] LABS: Anion Gap 11 mmol/L (10-20); BUN (Urea Nitrogen) 40 mg/dL (8.4-25.7); Calc. Creatinine Clearance 51 mL/min (70-130); Calcium 8.4 mg/dL (7.8-10.44); Carbon Dioxide 27 mmol/L (23-31); Chloride 107 mmol/L (98-107); Glucose 121 mg/dL (83-110); Potassium 4.3 mmol/L (3.5-5.1); Sodium 141 mmol/L (136-145)
[2024-11-09] MEDS: Sodium Ferric Gluconate 250 MG in Sodium Chloride 0.9% 250 ML 250 ML IVPB SCH (10:30)
[2024-11-09] MEDS: Carvedilol 3.125 MG TAB PO SCH ×2 (12:27→20:59)
[2024-11-09] MEDS: Lactulose 20 GM (30 mL) UDCUP PO SCH ×2 (15:08→20:59)
[2024-11-09] MEDS: Senokot S 8.6-50 MG TAB PO SCH (22:07)
[2024-11-10 05:11] LABS: Anion Gap 15 mmol/L (10-20); BUN (Urea Nitrogen) 41 mg/dL (8.4-25.7); Calc. Creatinine Clearance 50 mL/min (70-130); Calcium 8.7 mg/dL (7.8-10.44); Carbon Dioxide 25 mmol/L (23-31); Chloride 105 mmol/L (98-107); Glucose 123 mg/dL (83-110); Potassium 3.9 mmol/L (3.5-5.1); Sodium 141 mmol/L (136-145)
[2024-11-11 05:42] LABS: Anion Gap 15 mmol/L (10-20); BUN (Urea Nitrogen) 42 mg/dL (8.4-25.7); Calc. Creatinine Clearance 51 mL/min (70-130); Calcium 8.7 mg/dL (7.8-10.44); Carbon Dioxide 25 mmol/L (23-31); Chloride 104 mmol/L (98-107); Glucose 126 mg/dL (83-110); Potassium 3.9 mmol/L (3.5-5.1); Sodium 140 mmol/L (136-145)
[2024-11-12 05:53] LABS: Hematocrit 30.9 % (42.0-52.0); Hemoglobin 8.6 g/dL (14.0-18.0); Mean Corpuscular Hemoglobin 22.1 pg (27.0-31.0); Mean Corpuscular Volume 79.4 fL (78.0-98.0); Platelet Count 128 10x3/uL (130-400); Red Blood Cell (RBC) Count 3.89 mill/uL (4.70-6.10); White Blood Cell (WBC) Count 3.81 10x3/uL (4.8-10.8)
[2024-11-12 05:54] LABS: Anion Gap 16 mmol/L (10-20); BUN (Urea Nitrogen) 39 mg/dL (8.4-25.7); Calc. Creatinine Clearance 54 mL/min (70-130); Calcium 8.8 mg/dL (7.8-10.44); Carbon Dioxide 26 mmol/L (23-31); Chloride 101 mmol/L (98-107); Glucose 122 mg/dL (83-110); Potassium 3.8 mmol/L (3.5-5.1); Sodium 139 mmol/L (136-145)
[2024-11-12 06:25] LABS: Microcytosis SLIGHT = 6-15 cells HPF (0-5); Nucleated RBC (Manual Ct) 2 % (0); Platelet Adequacy Comment Platelets Decreased; Smudge Cells 10.7 %
[2024-11-13 05:15] LABS: Hematocrit 29.9 % (42.0-52.0); Hemoglobin 8.7 g/dL (14.0-18.0); Mean Corpuscular Hemoglobin 22.6 pg (27.0-31.0); Mean Corpuscular Volume 77.7 fL (78.0-98.0); Platelet Count 132 10x3/uL (130-400); Red Blood Cell (RBC) Count 3.85 mill/uL (4.70-6.10); White Blood Cell (WBC) Count 3.95 10x3/uL (4.8-10.8)
[2024-11-13 05:29] LABS: Anion Gap 15 mmol/L (10-20); BUN (Urea Nitrogen) 49 mg/dL (8.4-25.7); Calc. Creatinine Clearance 45 mL/min (70-130); Calcium 8.9 mg/dL (7.8-10.44); Carbon Dioxide 28 mmol/L (23-31); Chloride 99 mmol/L (98-107); Glucose 150 mg/dL (83-110); Potassium 3.7 mmol/L (3.5-5.1); Sodium 138 mmol/L (136-145)
[2024-11-13 05:47] LABS: Anisocytosis SLIGHT = 6-15 cells HPF (0-5); Microcytosis SLIGHT = 6-15 cells HPF (0-5); Nucleated RBC (Manual Ct) 1 % (0); Platelet Adequacy Comment Platelets Normal; Polychromasia SLIGHT = 2-3 cells HPF (0-2)
[2024-11-13] MEDS: Furosemide 40 MG (4 mL) VIAL SLOW IVP SCH (14:12)
[2024-11-14 04:23] LABS: Hematocrit 31.2 % (42.0-52.0); Hemoglobin 8.8 g/dL (14.0-18.0); Mean Corpuscular Hemoglobin 22.5 pg (27.0-31.0); Mean Corpuscular Volume 79.8 fL (78.0-98.0); Platelet Count 123 10x3/uL (130-400); Red Blood Cell (RBC) Count 3.91 mill/uL (4.70-6.10); White Blood Cell (WBC) Count 5.47 10x3/uL (4.8-10.8)
[2024-11-14 08:59] LABS: Anion Gap 20 mmol/L (10-20); BUN (Urea Nitrogen) 50 mg/dL (8.4-25.7); Calc. Creatinine Clearance 47 mL/min (70-130); Calcium 8.9 mg/dL (7.8-10.44); Carbon Dioxide 23 mmol/L (23-31); Chloride 100 mmol/L (98-107); Glucose 153 mg/dL (83-110); Magnesium 2.3 mg/dL (1.6-2.6); Potassium 3.9 mmol/L (3.5-5.1); Sodium 139 mmol/L (136-145)
[2024-11-14] MEDS: PNEUMOC 20-VAL CONJ-DIP CRM/PF 0.5 ML SYRINGE IM ONE (09:23)
[2024-11-15 04:48] LABS: Anion Gap 15 mmol/L (10-20); BUN (Urea Nitrogen) 48 mg/dL (8.4-25.7); Calc. Creatinine Clearance 49 mL/min (70-130); Calcium 8.8 mg/dL (7.8-10.44); Carbon Dioxide 29 mmol/L (23-31); Chloride 98 mmol/L (98-107); Glucose 153 mg/dL (83-110); Magnesium 2.2 mg/dL (1.6-2.6); Potassium 3.7 mmol/L (3.5-5.1); Sodium 138 mmol/L (136-145)
[2024-11-16 05:06] LABS: Anion Gap 16 mmol/L (10-20); BUN (Urea Nitrogen) 52 mg/dL (8.4-25.7); Calc. Creatinine Clearance 49 mL/min (70-130); Calcium 8.8 mg/dL (7.8-10.44); Carbon Dioxide 29 mmol/L (23-31); Chloride 98 mmol/L (98-107); Glucose 211 mg/dL (83-110); Magnesium 2.1 mg/dL (1.6-2.6); Potassium 3.8 mmol/L (3.5-5.1); Sodium 139 mmol/L (136-145)
[2024-11-16 05:10] LABS: Hematocrit 33.9 % (42.0-52.0); Hemoglobin 9.5 g/dL (14.0-18.0); Mean Corpuscular Hemoglobin 22.5 pg (27.0-31.0); Mean Corpuscular Volume 80.3 fL (78.0-98.0); Platelet Count 108 10x3/uL (130-400); Red Blood Cell (RBC) Count 4.22 mill/uL (4.70-6.10); White Blood Cell (WBC) Count 6.40 10x3/uL (4.8-10.8)
[2024-11-16 05:54] LABS: Anisocytosis MODERATE=16-30 cells HPF (0-5); Burr Cells SLIGHT = 2-5 cells HPF (0-1); Microcytosis SLIGHT = 6-15 cells HPF (0-5); Nucleated RBC (Manual Ct) 1 % (0); Platelet Adequacy Comment Platelets Decreased; Polychromasia SLIGHT = 2-3 cells HPF (0-2); Schistocytes SLIGHT = 2-5 cells HPF (0-1); Smudge Cells 7.9 %; Target Cells SLIGHT = 2-5 cells HPF (0-1)
[2024-11-16 13:50] LABS: Anion Gap 17 mmol/L (10-20); BUN (Urea Nitrogen) 52 mg/dL (8.4-25.7); Calc. Creatinine Clearance 50 mL/min (70-130); Calcium 8.9 mg/dL (7.8-10.44); Carbon Dioxide 31 mmol/L (23-31); Chloride 97 mmol/L (98-107); Glucose 172 mg/dL (83-110); Potassium 3.9 mmol/L (3.5-5.1); Sodium 141 mmol/L (136-145)
[2024-11-17 05:11] LABS: #Basophils Less than 0.03 10x3/uL (0.0-0.2); #Eosinophils 0.19 10x3/uL (0.0-0.7); #Monocytes 0.77 10x3/uL (0.11-0.59); #Neutrophils 3.44 10x3/uL (1.40-6.50); %Basophils 0.4 % (0.0-1.0); %Eosinophils 3.6 % (0.0-10.0); %Lymphocytes 15.1 % (21.0-51.0); %Monocytes 14.7 % (0.0-10.0); %Neutrophils 65.6 % (42.0-75.0); Hematocrit 29.4 % (42.0-52.0); Hemoglobin 8.7 g/dL (14.0-18.0); Mean Corpuscular Hemoglobin 23.0 pg (27.0-31.0); Mean Corpuscular Volume 77.6 fL (78.0-98.0); Platelet Count 124 10x3/uL (130-400); Red Blood Cell (RBC) Count 3.79 mill/uL (4.70-6.10); White Blood Cell (WBC) Count 5.24 10x3/uL (4.8-10.8)
[2024-11-17 05:13] LABS: Anion Gap 17 mmol/L (10-20); BUN (Urea Nitrogen) 52 mg/dL (8.4-25.7); Calc. Creatinine Clearance 50 mL/min (70-130); Calcium 8.7 mg/dL (7.8-10.44); Carbon Dioxide 31 mmol/L (23-31); Chloride 95 mmol/L (98-107); Glucose 161 mg/dL (83-110); Magnesium 2.0 mg/dL (1.6-2.6); Potassium 3.7 mmol/L (3.5-5.1); Sodium 139 mmol/L (136-145)
[2024-11-17] MEDS: Magnesium 2 GM/50 ML(in water) 2 GM in Premix 1 BAG IVPB SCH (14:57)
[2024-11-18 03:57] LABS: #Basophils Less than 0.03 10x3/uL (0.0-0.2); #Eosinophils 0.21 10x3/uL (0.0-0.7); #Monocytes 1.02 10x3/uL (0.11-0.59); #Neutrophils 3.70 10x3/uL (1.40-6.50); %Basophils 0.3 % (0.0-1.0); %Eosinophils 3.5 % (0.0-10.0); %Lymphocytes 16.8 % (21.0-51.0); %Monocytes 17.0 % (0.0-10.0); %Neutrophils 61.7 % (42.0-75.0); Hematocrit 32.8 % (42.0-52.0); Hemoglobin 9.3 g/dL (14.0-18.0); Mean Corpuscular Hemoglobin 22.5 pg (27.0-31.0); Mean Corpuscular Volume 79.2 fL (78.0-98.0); Platelet Count 122 10x3/uL (130-400); Red Blood Cell (RBC) Count 4.14 mill/uL (4.70-6.10); White Blood Cell (WBC) Count 6.00 10x3/uL (4.8-10.8)
[2024-11-18 04:29] LABS: Anion Gap 16 mmol/L (10-20); BUN (Urea Nitrogen) 48 mg/dL (8.4-25.7); Calc. Creatinine Clearance 51 mL/min (70-130); Calcium 9.0 mg/dL (7.8-10.44); Carbon Dioxide 32 mmol/L (23-31); Chloride 94 mmol/L (98-107); Glucose 139 mg/dL (83-110); Magnesium 2.3 mg/dL (1.6-2.6); Potassium 4.1 mmol/L (3.5-5.1); Sodium 138 mmol/L (136-145)
[2024-11-18] MEDS: Furosemide 40 MG (4 mL) VIAL SLOW IVP SCH (13:09)
[2024-11-19 05:07] LABS: #Basophils 0.03 10x3/uL (0.0-0.2); #Eosinophils 0.17 10x3/uL (0.0-0.7); #Monocytes 0.59 10x3/uL (0.11-0.59); #Neutrophils 3.28 10x3/uL (1.40-6.50); %Basophils 0.6 % (0.0-1.0); %Eosinophils 3.5 % (0.0-10.0); %Lymphocytes 15.5 % (21.0-51.0); %Monocytes 12.2 % (0.0-10.0); %Neutrophils 67.6 % (42.0-75.0); Hematocrit 28.4 % (42.0-52.0); Hemoglobin 8.5 g/dL (14.0-18.0); Mean Corpuscular Hemoglobin 23.0 pg (27.0-31.0); Mean Corpuscular Volume 76.8 fL (78.0-98.0); Platelet Count 129 10x3/uL (130-400); Red Blood Cell (RBC) Count 3.70 mill/uL (4.70-6.10); White Blood Cell (WBC) Count 4.85 10x3/uL (4.8-10.8)
[2024-11-19 05:18] LABS: Anion Gap 12 mmol/L (10-20); BUN (Urea Nitrogen) 51 mg/dL (8.4-25.7); Calc. Creatinine Clearance 49 mL/min (70-130); Calcium 8.6 mg/dL (7.8-10.44); Carbon Dioxide 37 mmol/L (23-31); Chloride 93 mmol/L (98-107); Glucose 162 mg/dL (83-110); Potassium 4.1 mmol/L (3.5-5.1); Sodium 138 mmol/L (136-145)
[2024-11-20 05:36] LABS: Anion Gap 14 mmol/L (10-20); BUN (Urea Nitrogen) 54 mg/dL (8.4-25.7); Calc. Creatinine Clearance 52 mL/min (70-130); Calcium 8.8 mg/dL (7.8-10.44); Carbon Dioxide 36 mmol/L (23-31); Chloride 92 mmol/L (98-107); Glucose 126 mg/dL (83-110); Potassium 3.9 mmol/L (3.5-5.1); Sodium 138 mmol/L (136-145)
[2024-11-20 15:24] VITALS: BMI 29.9
[2024-11-20 21:28] LABS: #Basophils 0.03 10x3/uL (0.0-0.2); #Eosinophils 0.13 10x3/uL (0.0-0.7); #Monocytes 0.55 10x3/uL (0.11-0.59); #Neutrophils 2.76 10x3/uL (1.40-6.50); %Basophils 0.7 % (0.0-1.0); %Eosinophils 3.0 % (0.0-10.0); %Lymphocytes 19.8 % (21.0-51.0); %Monocytes 12.6 % (0.0-10.0); %Neutrophils 63.4 % (42.0-75.0); Hematocrit 29.6 % (42.0-52.0); Hemoglobin 8.6 g/dL (14.0-18.0); Mean Corpuscular Hemoglobin 22.9 pg (27.0-31.0); Mean Corpuscular Volume 78.9 fL (78.0-98.0); Platelet Count 136 10x3/uL (130-400); Red Blood Cell (RBC) Count 3.75 mill/uL (4.70-6.10); White Blood Cell (WBC) Count 4.35 10x3/uL (4.8-10.8)
[2024-11-21 04:59] LABS: #Basophils 0.03 10x3/uL (0.0-0.2); #Eosinophils 0.14 10x3/uL (0.0-0.7); #Monocytes 0.56 10x3/uL (0.11-0.59); #Neutrophils 3.04 10x3/uL (1.40-6.50); %Basophils 0.6 % (0.0-1.0); %Eosinophils 2.9 % (0.0-10.0); %Lymphocytes 20.4 % (21.0-51.0); %Monocytes 11.8 % (0.0-10.0); %Neutrophils 63.9 % (42.0-75.0); Hematocrit 29.2 % (42.0-52.0); Hemoglobin 8.4 g/dL (14.0-18.0); Mean Corpuscular Hemoglobin 22.4 pg (27.0-31.0); Mean Corpuscular Volume 77.9 fL (78.0-98.0); Platelet Count 137 10x3/uL (130-400); Red Blood Cell (RBC) Count 3.75 mill/uL (4.70-6.10); White Blood Cell (WBC) Count 4.76 10x3/uL (4.8-10.8)
[2024-11-21 05:00] LABS: Anion Gap 12 mmol/L (10-20); BUN (Urea Nitrogen) 55 mg/dL (8.4-25.7); Calc. Creatinine Clearance 48 mL/min (70-130); Calcium 8.7 mg/dL (7.8-10.44); Carbon Dioxide 37 mmol/L (23-31); Chloride 90 mmol/L (98-107); Glucose 127 mg/dL (83-110); Magnesium 2.3 mg/dL (1.6-2.6); Potassium 4.0 mmol/L (3.5-5.1); Sodium 135 mmol/L (136-145)
[2024-11-21] MEDS ORDERED: Lidocaine 1% (PF) 30 ML VIAL ONE (06:28)
[2024-11-21] MEDS ORDERED: CEFAZOLIN 2 GM VIAL ONE (06:28)
[2024-11-21] MEDS ORDERED: Etomidate 40 MG (20 mL) VIAL ONE (07:45)
[2024-11-21] MEDS ORDERED: Ketamine In 0.9 % NaCl 50 MG/5 ML SYRINGE ONE (07:45)
[2024-11-21] MEDS ORDERED: NEOSTIGMINE 3 MG/3 ML SYRINGE ONE (07:59)
[2024-11-21] MEDS ORDERED: Glycopyrrolate 0.2 MG/ML 5 ML SYRINGE ONE (07:59)
[2024-11-21] MEDS ORDERED: Rocuronium Bromide 10 MG/ML (10ML VIAL) ONE ×2 (07:59)
[2024-11-21] MEDS ORDERED: DOBUTamine 250 MG/20 ML VIAL ONE (09:18)
[2024-11-21] MEDS ORDERED: Iopamidol 370 76% 100 ML VIAL ONE (10:41)
[2024-11-21] MEDS: Cephalexin 250 MG CAP PO SCH (14:03)
[2024-11-22 05:51] LABS: #Basophils Less than 0.03 10x3/uL (0.0-0.2); #Eosinophils 0.12 10x3/uL (0.0-0.7); #Monocytes 0.56 10x3/uL (0.11-0.59); #Neutrophils 3.66 10x3/uL (1.40-6.50); %Basophils 0.4 % (0.0-1.0); %Eosinophils 2.4 % (0.0-10.0); %Lymphocytes 12.1 % (21.0-51.0); %Monocytes 11.3 % (0.0-10.0); %Neutrophils 73.6 % (42.0-75.0); Hematocrit 29.5 % (42.0-52.0); Hemoglobin 8.4 g/dL (14.0-18.0); Mean Corpuscular Hemoglobin 22.8 pg (27.0-31.0); Mean Corpuscular Volume 80.2 fL (78.0-98.0); Platelet Count 166 10x3/uL (130-400); Red Blood Cell (RBC) Count 3.68 mill/uL (4.70-6.10); White Blood Cell (WBC) Count 4.97 10x3/uL (4.8-10.8)
[2024-11-22 05:58] LABS: Anion Gap 13 mmol/L (10-20); BUN (Urea Nitrogen) 50 mg/dL (8.4-25.7); Calc. Creatinine Clearance 49 mL/min (70-130); Calcium 8.8 mg/dL (7.8-10.44); Carbon Dioxide 35 mmol/L (23-31); Chloride 91 mmol/L (98-107); Glucose 136 mg/dL (83-110); Potassium 4.4 mmol/L (3.5-5.1); Sodium 135 mmol/L (136-145)
[2024-11-23 05:38] LABS: Albumin 2.8 g/dL (3.1-4.5); Anion Gap 16 mmol/L (10-20); BUN (Urea Nitrogen) 46 mg/dL (8.4-25.7); BUN/Creatinine Ratio 26.29; Calc. Creatinine Clearance 55 mL/min (70-130); Calcium 8.8 mg/dL (7.8-10.44); Carbon Dioxide 32 mmol/L (23-31); Chloride 92 mmol/L (98-107); Glucose 109 mg/dL (83-110); Potassium 4.3 mmol/L (3.5-5.1); Sodium 136 mmol/L (136-145)
[2024-11-23 05:39] LABS: #Basophils Less than 0.03 10x3/uL (0.0-0.2); #Eosinophils 0.14 10x3/uL (0.0-0.7); #Monocytes 0.75 10x3/uL (0.11-0.59); #Neutrophils 4.25 10x3/uL (1.40-6.50); %Basophils 0.3 % (0.0-1.0); %Eosinophils 2.3 % (0.0-10.0); %Lymphocytes 14.4 % (21.0-51.0); %Monocytes 12.4 % (0.0-10.0); %Neutrophils 70.4 % (42.0-75.0); Hematocrit 30.4 % (42.0-52.0); Hemoglobin 8.7 g/dL (14.0-18.0); Mean Corpuscular Hemoglobin 22.5 pg (27.0-31.0); Mean Corpuscular Volume 78.8 fL (78.0-98.0); Platelet Count 165 10x3/uL (130-400); Red Blood Cell (RBC) Count 3.86 mill/uL (4.70-6.10); White Blood Cell (WBC) Count 6.04 10x3/uL (4.8-10.8)
[2024-11-24 05:18] LABS: #Basophils Less than 0.03 10x3/uL (0.0-0.2); #Eosinophils 0.15 10x3/uL (0.0-0.7); #Monocytes 0.52 10x3/uL (0.11-0.59); #Neutrophils 3.58 10x3/uL (1.40-6.50); %Basophils 0.2 % (0.0-1.0); %Eosinophils 3.0 % (0.0-10.0); %Lymphocytes 15.3 % (21.0-51.0); %Monocytes 10.3 % (0.0-10.0); %Neutrophils 71.0 % (42.0-75.0); Hematocrit 27.6 % (42.0-52.0); Hemoglobin 8.2 g/dL (14.0-18.0); Mean Corpuscular Hemoglobin 23.1 pg (27.0-31.0); Mean Corpuscular Volume 77.7 fL (78.0-98.0); Platelet Count 176 10x3/uL (130-400); Red Blood Cell (RBC) Count 3.55 mill/uL (4.70-6.10); White Blood Cell (WBC) Count 5.04 10x3/uL (4.8-10.8)
[2024-11-24 05:24] LABS: Albumin 2.8 g/dL (3.1-4.5); Anion Gap 14 mmol/L (10-20); BUN (Urea Nitrogen) 47 mg/dL (8.4-25.7); BUN/Creatinine Ratio 26.11; Calc. Creatinine Clearance 49 mL/min (70-130); Calcium 9.1 mg/dL (7.8-10.44); Carbon Dioxide 35 mmol/L (23-31); Chloride 93 mmol/L (98-107); Glucose 144 mg/dL (83-110); Potassium 3.9 mmol/L (3.5-5.1); Sodium 138 mmol/L (136-145)
[2024-11-24] MEDS: Lisinopril 2.5 MG TAB PO SCH (09:01)
[2024-11-24] MEDS: Lactulose 20 GM (30 mL) UDCUP PO SCH (11:17)
[2024-11-25 05:00] LABS: #Basophils Less than 0.03 10x3/uL (0.0-0.2); #Eosinophils 0.13 10x3/uL (0.0-0.7); #Monocytes 0.61 10x3/uL (0.11-0.59); #Neutrophils 2.69 10x3/uL (1.40-6.50); %Basophils 0.2 % (0.0-1.0); %Eosinophils 3.1 % (0.0-10.0); %Lymphocytes 17.3 % (21.0-51.0); %Monocytes 14.6 % (0.0-10.0); %Neutrophils 64.6 % (42.0-75.0); Hematocrit 28.3 % (42.0-52.0); Hemoglobin 8.1 g/dL (14.0-18.0); Mean Corpuscular Hemoglobin 22.9 pg (27.0-31.0); Mean Corpuscular Volume 79.9 fL (78.0-98.0); Platelet Count 179 10x3/uL (130-400); Red Blood Cell (RBC) Count 3.54 mill/uL (4.70-6.10); White Blood Cell (WBC) Count 4.17 10x3/uL (4.8-10.8)
[2024-11-25 05:06] LABS: Albumin 2.8 g/dL (3.1-4.5); Anion Gap 13 mmol/L (10-20); BUN (Urea Nitrogen) 47 mg/dL (8.4-25.7); BUN/Creatinine Ratio 29.56; Calc. Creatinine Clearance 58 mL/min (70-130); Calcium 9.0 mg/dL (7.8-10.44); Carbon Dioxide 34 mmol/L (23-31); Chloride 94 mmol/L (98-107); Glucose 110 mg/dL (83-110); Magnesium 2.2 mg/dL (1.6-2.6); Potassium 3.8 mmol/L (3.5-5.1); Sodium 137 mmol/L (136-145)
[2024-11-25] MEDS: Furosemide 40 MG TAB PO SCH (08:29)
[2024-11-25 16:22] VITALS: BP 108/52
[2024-11-25 17:10] VITALS: TEMP 98.1
== END 2024-11-25 19:30 | disposition home health service (06) | DRG 242 ==
LOC: ERS 20:23 → 2NO 23:01
PROVIDERS: ADMIT Internal Medicine; ATTEND Student in an Organized Health Care Education/Training Program
PROC: 4A033R1 Measurement of Arterial Saturation, Peripheral, Percutaneous Approach (ICD-10-PCS; 2024-11-06)
PROC: 0JH607Z Insertion of Cardiac Resynchronization Pacemaker Pulse Generator into Chest Subcutaneous Tissue and Fascia, Open Approach (ICD-10-PCS; principal; 2024-11-21)
PROC: 02H63JZ Insertion of Pacemaker Lead into Right Atrium, Percutaneous Approach (ICD-10-PCS; 2024-11-21)
PROC: 02HL3JZ Insertion of Pacemaker Lead into Left Ventricle, Percutaneous Approach (ICD-10-PCS; 2024-11-21)
PROC: 02HK3JZ Insertion of Pacemaker Lead into Right Ventricle, Percutaneous Approach (ICD-10-PCS; 2024-11-21)
PROC: 3E0102A Introduction of Anti-Infective Envelope into Subcutaneous Tissue, Open Approach (ICD-10-PCS; 2024-11-21)
DX: I13.0 Hypertensive heart and chronic kidney disease with heart failure and stage 1 through stage 4 chronic kidney disease, or unspecified chronic kidney disease (principal); I50.23 Acute on chronic systolic (congestive) heart failure; J96.01 Acute respiratory failure with hypoxia; N17.9 Acute kidney failure, unspecified; J96.11 Chronic respiratory failure with hypoxia; D61.818 Other pancytopenia; I47.19 Other supraventricular tachycardia; E87.3 Alkalosis; J44.9 Chronic obstructive pulmonary disease, unspecified; E11.22 Type 2 diabetes mellitus with diabetic chronic kidney disease; I25.10 Atherosclerotic heart disease of native coronary artery without angina pectoris; E11.51 Type 2 diabetes mellitus with diabetic peripheral angiopathy without gangrene; G47.33 Obstructive sleep apnea (adult) (pediatric); I25.5 Ischemic cardiomyopathy; N18.30 Chronic kidney disease, stage 3 unspecified; E11.621 Type 2 diabetes mellitus with foot ulcer; L97.529 Non-pressure chronic ulcer of other part of left foot with unspecified severity; F32.A Depression, unspecified; I44.0 Atrioventricular block, first degree; E83.42 Hypomagnesemia; E87.6 Hypokalemia; I80.8 Phlebitis and thrombophlebitis of other sites; D50.9 Iron deficiency anemia, unspecified; D63.1 Anemia in chronic kidney disease; E66.01 Morbid (severe) obesity due to excess calories; T44.5X5A Adverse effect of predominantly beta-adrenoreceptor agonists, initial encounter; Z98.890 Other specified postprocedural states; Z90.89 Acquired absence of other organs; Z95.1 Presence of aortocoronary bypass graft; Z95.0 Presence of cardiac pacemaker; Z87.891 Personal history of nicotine dependence; Z79.899 Other long term (current) drug therapy; Z79.84 Long term (current) use of oral hypoglycemic drugs; Z79.82 Long term (current) use of aspirin; Z68.31 Body mass index [BMI] 31.0-31.9, adult
CPT/HCPCS: 33225; 33249; 36415; 36416; 71045; 80048; 80053; 80069; 82570; 82668; 82728; 82805; 83540; 83550; 83690; 83735; 83880; 84100; 84156; 84484; 85025; 85027; 93005; 93010; 93306; 93798; 94640; 96374; 97139; C1763; C1769; C1882; C1895; C1898; C1900; J1250; J1580; J1644; J1815; J1940; J2916; J3010; J3475; J3490; J7050; J7626; Q5105; Q9967

== ENCOUNTER 2025-02-07 21:05 | Inpatient (IN) | payer MEDICARE ==
[~2025-02-07 21:05] MED LIST changes: -Iopamidol 370 76% 100 ML VIAL ONE; +Iopamidol-370 76% 500 ML MDV (1 ML CHARGE) ONE
[2025-02-07 21:58] LABS: ALT (SGPT) 10 U/L (Less than 45); AST (SGOT) 20 U/L (11-34); Albumin 3.8 g/dL (3.1-4.5); Alkaline Phosphatase 84 U/L (40-110); Anion Gap 15 mmol/L (10-20); BUN (Urea Nitrogen) 50 mg/dL (8.4-25.7); Bilirubin, Total 0.6 mg/dL (0.3-1.2); CRP, High Sensitivity at Bryan 5.20 mg/dL (< or = 0.5); Calc. Creatinine Clearance 0 mL/min (70-130); Calcium 9.3 mg/dL (7.8-10.44); Carbon Dioxide 25 mmol/L (23-31); Chloride 102 mmol/L (98-107); Globulin 4.3 g/dL (2.4-3.5); Glucose 193 mg/dL (83-110); INR-International Normal Ratio 1.2; Potassium 5.1 mmol/L (3.5-5.1); Prothrombin Time 15.7 sec (12.0-14.7); Sodium 137 mmol/L (136-145)
[2025-02-07 21:59] LABS: Lipase 26 U/L (8-78); Magnesium 2.2 mg/dL (1.6-2.6); PTT 39.0 sec (22.9-36.1)
[2025-02-07 22:04] LABS: #Basophils Less than 0.03 10x3/uL (0.0-0.2); #Eosinophils 0.11 10x3/uL (0.0-0.7); #Monocytes 0.60 10x3/uL (0.11-0.59); #Neutrophils 7.07 10x3/uL (1.40-6.50); %Basophils 0.2 % (0.0-1.0); %Eosinophils 1.3 % (0.0-10.0); %Lymphocytes 6.1 % (21.0-51.0); %Monocytes 7.2 % (0.0-10.0); %Neutrophils 84.8 % (42.0-75.0); Hematocrit 35.3 % (42.0-52.0); Hemoglobin 10.8 g/dL (14.0-18.0); Mean Corpuscular Hemoglobin 26.2 pg (27.0-31.0); Mean Corpuscular Volume 85.7 fL (78.0-98.0); Platelet Count 115 10x3/uL (130-400); Red Blood Cell (RBC) Count 4.12 mill/uL (4.70-6.10); White Blood Cell (WBC) Count 8.34 10x3/uL (4.8-10.8)
[2025-02-07 22:25] LABS: Anisocytosis SLIGHT = 6-15 cells HPF (0-5); Platelet Adequacy Comment Platelets Decreased; Polychromasia SLIGHT = 2-3 cells HPF (0-2)
[2025-02-07] MEDS ORDERED: Acetaminophen 500 MG TAB ONE (22:28)
[2025-02-07] MEDS ORDERED: VANCOMYCIN 2 GRAM/400 ML BAG 400 ML ONE (22:28)
[2025-02-08 00:02] LABS: Actual Bicarbonate (HCO3v) 25.6 mEq/L (22-28); Base Excess -0.8 mEq/L (-2.0 to +3.0); Calcium, Ionized (venous) 1.13 mmol/L (1.16-1.32); Chloride (VBG) 100 mmol/L (98-106); Hematocrit-VBG 34 % (42.0-52.0); Hemoglobin (Hb) 11.6 g/dL (12.6-17.4); Potassium (VBG) 4.79 mmol/L (3.70-5.30); Sodium 135 mmol/L (133-146)
[2025-02-08] MEDS ORDERED: Glucagon 1 MG/ML KIT IM PRN (01:12)
[2025-02-08] MEDS ORDERED: Dextrose 50% Abboject 50 ML SYRINGE SLOW IVP PRN (01:12)
[2025-02-08] MEDS ORDERED: Acetaminophen 325 MG TAB PO PRN (01:16)
[2025-02-08] MEDS ORDERED: Calcium Carbonate 500 MG ChewTAB PO PRN (01:16)
[2025-02-08] MEDS ORDERED: Ondansetron PF 4 MG/2 ML Vial IVP PRN (01:16)
[2025-02-08 04:49] VITALS: BMI 28.1
[2025-02-08] MEDS: Aspirin 81 mg Enteric Coated Tablet PO SCH (08:27)
[2025-02-08] MEDS: Furosemide 40 MG TAB PO SCH (08:27)
[2025-02-08] MEDS: CO Q-10 CAPSULE 100 MG PO SCH (08:27)
[2025-02-08] MEDS ORDERED: Non-Formulary Item 1 EACH (Umeclidinium Brm/Vilanterol Tr [Anoro Ellipta] 62.5 MCG/25 MCG INH SCH (09:00)
[2025-02-08 11:27] LABS: Hematocrit 32.2 % (42.0-52.0); Hemoglobin 9.7 g/dL (14.0-18.0); Mean Corpuscular Hemoglobin 26.1 pg (27.0-31.0); Mean Corpuscular Volume 86.8 fL (78.0-98.0); Platelet Count 100 10x3/uL (130-400); Red Blood Cell (RBC) Count 3.71 mill/uL (4.70-6.10); White Blood Cell (WBC) Count 8.04 10x3/uL (4.8-10.8)
[2025-02-08 11:41] LABS: ALT (SGPT) 7 U/L (Less than 45); AST (SGOT) 20 U/L (11-34); Albumin 3.2 g/dL (3.1-4.5); Alkaline Phosphatase 64 U/L (40-110); Anion Gap 14 mmol/L (10-20); BUN (Urea Nitrogen) 47 mg/dL (8.4-25.7); Bilirubin, Total 0.5 mg/dL (0.3-1.2); Calc. Creatinine Clearance 42 mL/min (70-130); Calcium 8.8 mg/dL (7.8-10.44); Carbon Dioxide 25 mmol/L (23-31); Chloride 104 mmol/L (98-107); Globulin 3.7 g/dL (2.4-3.5); Glucose 166 mg/dL (83-110); Potassium 4.5 mmol/L (3.5-5.1); Sodium 138 mmol/L (136-145)
[2025-02-08 11:52] LABS: Anisocytosis SLIGHT = 6-15 cells HPF (0-5); Burr Cells SLIGHT = 2-5 cells HPF (0-1); Macrocytosis SLIGHT = 6-15 cells HPF (0-5); Ovalocytes SLIGHT = 2-5 cells HPF (0-1); Platelet Adequacy Comment Platelets Decreased; Polychromasia SLIGHT = 2-3 cells HPF (0-2)
[2025-02-08] MEDS ORDERED: GUAIFENESIN SF SOLN 200 MG/10 ML UDCUP PO PRN (16:20)
[2025-02-08] MEDS: Benzonatate 100 MG CAP PO SCH (20:45)
[2025-02-08] MEDS: Heparin 5,000 UNITS/ML VIAL SC SCH (20:46)
[2025-02-09 05:07] LABS: Anion Gap 13 mmol/L (10-20); BUN (Urea Nitrogen) 47 mg/dL (8.4-25.7); Calc. Creatinine Clearance 48 mL/min (70-130); Calcium 8.8 mg/dL (7.8-10.44); Carbon Dioxide 22 mmol/L (23-31); Chloride 106 mmol/L (98-107); Glucose 117 mg/dL (83-110); Potassium 4.5 mmol/L (3.5-5.1); Sodium 136 mmol/L (136-145)
[2025-02-09 05:26] LABS: #Basophils 0.03 10x3/uL (0.0-0.2); #Eosinophils 0.38 10x3/uL (0.0-0.7); #Monocytes 0.64 10x3/uL (0.11-0.59); #Neutrophils 4.06 10x3/uL (1.40-6.50); %Basophils 0.5 % (0.0-1.0); %Eosinophils 6.2 % (0.0-10.0); %Lymphocytes 16.7 % (21.0-51.0); %Monocytes 10.4 % (0.0-10.0); %Neutrophils 66.0 % (42.0-75.0); Hematocrit 33.2 % (42.0-52.0); Hemoglobin 10.0 g/dL (14.0-18.0); Mean Corpuscular Hemoglobin 26.4 pg (27.0-31.0); Mean Corpuscular Volume 87.6 fL (78.0-98.0); Platelet Count 115 10x3/uL (130-400); Red Blood Cell (RBC) Count 3.79 mill/uL (4.70-6.10); White Blood Cell (WBC) Count 6.15 10x3/uL (4.8-10.8)
[2025-02-09] MEDS: Oxybutynin 5 MG TAB PO SCH (08:55)
[2025-02-09] MEDS: Potassium Bicarbonate/Cit Ac 20 MEQ TAB PO SCH (08:55)
[2025-02-09] MEDS: Multivitamin W/ Minerals 1 TAB PO SCH (08:55)
[2025-02-10 05:06] LABS: #Basophils 0.04 10x3/uL (0.0-0.2); #Eosinophils 0.47 10x3/uL (0.0-0.7); #Monocytes 0.43 10x3/uL (0.11-0.59); #Neutrophils 2.70 10x3/uL (1.40-6.50); %Basophils 0.9 % (0.0-1.0); %Eosinophils 10.0 % (0.0-10.0); %Lymphocytes 22.3 % (21.0-51.0); %Monocytes 9.1 % (0.0-10.0); %Neutrophils 57.5 % (42.0-75.0); Hematocrit 33.7 % (42.0-52.0); Hemoglobin 10.3 g/dL (14.0-18.0); Mean Corpuscular Hemoglobin 26.4 pg (27.0-31.0); Mean Corpuscular Volume 86.4 fL (78.0-98.0); Platelet Count 128 10x3/uL (130-400); Red Blood Cell (RBC) Count 3.90 mill/uL (4.70-6.10); White Blood Cell (WBC) Count 4.70 10x3/uL (4.8-10.8)
[2025-02-10 05:22] LABS: Anion Gap 10 mmol/L (10-20); BUN (Urea Nitrogen) 45 mg/dL (8.4-25.7); Calc. Creatinine Clearance 51 mL/min (70-130); Calcium 8.8 mg/dL (7.8-10.44); Carbon Dioxide 26 mmol/L (23-31); Chloride 106 mmol/L (98-107); Glucose 128 mg/dL (83-110); Potassium 4.5 mmol/L (3.5-5.1); Sodium 137 mmol/L (136-145)
[2025-02-10] MEDS: FLU (Fluad Triv) 25-26 (65UP)PF 45 MCG/0.5 ML Syringe IM ONE (07:47)
[2025-02-11] MEDS: Pantoprazole 40 MG DR.TAB PO SCH (09:12)
[2025-02-11 11:02] VITALS: BP 132/78; TEMP 98.3
== END 2025-02-11 15:25 | disposition home or self-care (01) | DRG 871 ==
LOC: ERS 21:05 → ERHOLD 02-08 01:19 → 2NO 02-08 04:45
PROVIDERS: ADMIT Student in an Organized Health Care Education/Training Program; ATTEND Internal Medicine
DX: A41.9 Sepsis, unspecified organism (principal); I50.23 Acute on chronic systolic (congestive) heart failure; J18.9 Pneumonia, unspecified organism; I13.0 Hypertensive heart and chronic kidney disease with heart failure and stage 1 through stage 4 chronic kidney disease, or unspecified chronic kidney disease; N17.9 Acute kidney failure, unspecified; I25.10 Atherosclerotic heart disease of native coronary artery without angina pectoris; E11.22 Type 2 diabetes mellitus with diabetic chronic kidney disease; J44.9 Chronic obstructive pulmonary disease, unspecified; F32.A Depression, unspecified; I71.23 Aneurysm of the descending thoracic aorta, without rupture; N18.30 Chronic kidney disease, stage 3 unspecified; Z98.890 Other specified postprocedural states; Z90.89 Acquired absence of other organs; Z95.0 Presence of cardiac pacemaker; Z87.891 Personal history of nicotine dependence; Z88.0 Allergy status to penicillin; Z79.899 Other long term (current) drug therapy; Z79.82 Long term (current) use of aspirin; Z79.84 Long term (current) use of oral hypoglycemic drugs; Z95.1 Presence of aortocoronary bypass graft
CPT/HCPCS: 36415; 36416; 71045; 71275; 80048; 80053; 82805; 83036; 83605; 83690; 83735; 83880; 84484; 85025; 85610; 85730; 86141; 87040; 93005; 94640; 96365; 96366; 96367; J0692; J1815; J2185; J3375; J7120; J7626; Q9967